=== PATIENT | male | born 1960 | race Caucasian/White ===

== ENCOUNTER 2017-11-07 16:09 | Inpatient (IN) | payer BC ==
[2017-11-07] MEDS ORDERED: MIDAZOLAM 1 MG/ML 2 ML INJ (19:36)
[2017-11-07] MEDS: THROMBIN 5000 UNIT VIAL (20:13)
[2017-11-07] MEDS: GELATIN SIZE 100 SPONGE (20:13)
[2017-11-07] MEDS ORDERED: PROPOFOL 20 ML (20:20)
[2017-11-07] MEDS ORDERED: LIDOCAINE 2% (SDV) 5 ML INJ (20:20)
[2017-11-07] MEDS ORDERED: ETOMIDATE 20 MG INJ (20:20)
[2017-11-07] MEDS ORDERED: CLINDAMYCIN 600 MG/D5W (PMX) 50 ML IVPB (20:21)
[2017-11-07] MEDS ORDERED: ONDANSETRON 4 MG INJ ×2 (20:21→20:35)
[2017-11-07] MEDS ORDERED: LABETALOL HCL 20MG INJ (20:35)
[2017-11-07] MEDS ORDERED: FENTAnyl 50 MCG/ML VIAL (20:35)
[2017-11-07] MEDS ORDERED: HYDROmorphONE (0.2 MG/ML) 10ML SYG IV ×2 (20:35→21:00)
[2017-11-07] MEDS: ONDANSETRON 4 MG INJ IV (20:42)
[2017-11-07] MEDS: HYDROmorphONE (0.2 MG/ML) 10ML SYG IV ×5 (20:42→21:27)
[2017-11-07] MEDS: LABETALOL HCL 20MG INJ IV (20:43)
[2017-11-07] MEDS ORDERED: DIPHENHYDRAMINE 50 MG INJ IV (21:00)
[2017-11-07] MEDS ORDERED: FENTAnyl 50 MCG/ML VIAL IV (21:00)
[2017-11-07] MEDS ORDERED: hydrALAzine 20 MG INJ IV (21:00)
[2017-11-07] MEDS: MEPERIDINE 25 MG INJ IV (21:11)
[2017-11-07] MEDS: HYDROCODONE/APAP (5/325) TAB PO (22:08)
[2017-11-07] MEDS ORDERED: DEXTROSE 50% 50 ML SYRINGE IV ×2 (23:45)
[2017-11-07] MEDS ORDERED: GLUCAGON 1 MG INJ IM (23:45)
[2017-11-07] MEDS ORDERED: GLUCOSE GEL 15 GRAM TUBE BUCCAL (23:45)
[2017-11-07] MEDS ORDERED: GLUCOSE GEL 15 GRAM TUBE PO ×2 (23:45)
[2017-11-07] MEDS: HYDROmorphONE 0.5 MG/0.5 ML SYG IV (23:56)
[2017-11-07] MEDS: 1/2 NS + KCL 20 MEQ 1,000 ML IV (23:56)
[2017-11-08] MEDS: hydrALAzine 20 MG INJ IV (00:30)
[2017-11-08] MEDS: HYDROCODONE/APAP (5/325) TAB PO ×6 (01:28→22:30)
[2017-11-08] MEDS: HYDROmorphONE 0.5 MG/0.5 ML SYG IV ×3 (04:18→20:38)
[2017-11-08] MEDS: INSULIN ASPART [NOVOLOG] 3 ML PEN SC ×5 (08:54→20:48)
[2017-11-08] MEDS ORDERED: HYDROCODONE/APAP (10/325) TAB PO (16:30)
[2017-11-08] MEDS ORDERED: hydrALAzine 20 MG INJ IV (17:00)
[2017-11-08] MEDS ORDERED: INSULIN ASP PROT/ASPART (70/30) PEN SC (17:25)
[2017-11-08 17:52] LABS: ADD MAN DIFF? NO
[2017-11-08 17:53] LABS: WHITE BLOOD COUNT 10.5 10^3/ul (4.8-10.8)
[2017-11-08 17:53] LABS: BASOPHILS % 0.1 % (0.0-2.0); EOSINOPHILS # 0.2 10^3/ul (0.0-0.5); HEMATOCRIT 29.9 % (42.0-52.0); HEMOGLOBIN 9.9 g/dl (14.0-18.0); LYMPHOCYTES # 1.5 10^3/ul (0.8-2.9); LYMPHOCYTES % 14.1 % (15.0-51.0); MEAN CORPUSCULAR HEMOGLOBIN 28.4 pg (29.0-33.0); MEAN CORPUSCULAR HGB CONC 33.1 g/dl (32.0-37.0); MEAN CORPUSCULAR VOLUME 85.9 fl (82.0-101.0); MEAN PLATELET VOLUME 8.6 fl (7.4-10.4); MONOCYTE # 0.7 10^3/ul (0.3-0.9); MONOCYTES % 6.9 % (0.0-11.0); NEUTROPHILS % 76.5 % (39.0-77.0); PLATELET COUNT 317 10^3/UL (140-415); RED BLOOD COUNT 3.48 10^6/ul (4.70-6.10); RED CELL DISTRIBUTION WIDTH 11.7 % (11.5-14.5)
[2017-11-08] MEDS ORDERED: INSULIN ASPART [NOVOLOG] 3 ML PEN SC (17:55)
[2017-11-08 18:11] LABS: ANION GAP 12 (8-16); BLOOD UREA NITROGEN 12 mg/dl (7-20); CALCIUM 8.5 mg/dl (8.4-10.2); CARBON DIOXIDE 29 mmol/L (21-31); CHLORIDE 96 mmol/L (97-110); CREATININE 0.67 mg/dl (0.61-1.24); GLUCOSE 218 mg/dl (70-220); POTASSIUM 4.7 mmol/L (3.5-5.1)
[2017-11-08 18:12] LABS: SODIUM 132 mmol/L (135-144)
[2017-11-08] MEDS: GABAPENTIN 400 MG CAP PO (20:33)
[2017-11-08] MEDS: ACETAMINOPHEN 325 MG TAB PO (20:34)
[2017-11-08] MEDS: INSULIN GLARGINE [LANtus] 3 ML PEN SC (20:41)
[2017-11-08] MEDS: LATANOPROST 0.005% 2.5 ML OPH BOTH EYES (20:50)
[2017-11-09] MEDS: HYDROCODONE/APAP (5/325) TAB PO ×4 (02:36→20:27)
[2017-11-09] MEDS: ACETAMINOPHEN 325 MG TAB PO (02:43)
[2017-11-09 06:19] LABS: ADD MAN DIFF? NO
[2017-11-09 06:37] LABS: WHITE BLOOD COUNT 13.2 10^3/ul (4.8-10.8)
[2017-11-09 06:37] LABS: BASOPHILS % 0.1 % (0.0-2.0); EOSINOPHILS # 0.1 10^3/ul (0.0-0.5); EOSINOPHILS % 0.8 % (0.0-7.0); HEMATOCRIT 28.9 % (42.0-52.0); HEMOGLOBIN 9.6 g/dl (14.0-18.0); LYMPHOCYTES # 1.2 10^3/ul (0.8-2.9); LYMPHOCYTES % 9.3 % (15.0-51.0); MEAN CORPUSCULAR HEMOGLOBIN 28.4 pg (29.0-33.0); MEAN CORPUSCULAR HGB CONC 33.2 g/dl (32.0-37.0); MEAN CORPUSCULAR VOLUME 85.5 fl (82.0-101.0); MEAN PLATELET VOLUME 9.4 fl (7.4-10.4); MONOCYTE # 0.8 10^3/ul (0.3-0.9); MONOCYTES % 5.9 % (0.0-11.0); NEUTROPHILS % 83.4 % (39.0-77.0); PLATELET COUNT 351 10^3/UL (140-415); RED BLOOD COUNT 3.38 10^6/ul (4.70-6.10); RED CELL DISTRIBUTION WIDTH 11.7 % (11.5-14.5)
[2017-11-09 07:17] LABS: ANION GAP 15 (8-16); BLOOD UREA NITROGEN 12 mg/dl (7-20); CALCIUM 8.6 mg/dl (8.4-10.2); CARBON DIOXIDE 28 mmol/L (21-31); CHLORIDE 97 mmol/L (97-110); GLUCOSE 225 mg/dl (70-220); POTASSIUM 4.5 mmol/L (3.5-5.1); SODIUM 135 mmol/L (135-144)
[2017-11-09 07:48] LABS: HEMOGLOBIN A1C 8.7 % (0-5.9)
[2017-11-09] MEDS: ASPIRIN (EC) 81 MG TAB PO (09:11)
[2017-11-09] MEDS: GABAPENTIN 400 MG CAP PO ×3 (09:11→20:15)
[2017-11-09] MEDS: INSULIN ASPART [NOVOLOG] 3 ML PEN SC ×7 (10:01→20:19)
[2017-11-09] MEDS: ONDANSETRON 4 MG INJ IV (10:05)
[2017-11-09] MEDS: HYDROmorphONE 0.5 MG/0.5 ML SYG IV ×3 (11:12→21:55)
[2017-11-09] MEDS: LATANOPROST 0.005% 2.5 ML OPH BOTH EYES (20:16)
[2017-11-09] MEDS: INSULIN GLARGINE [LANtus] 3 ML PEN SC (20:18)
[2017-11-10] MEDS: HYDROCODONE/APAP (5/325) TAB PO ×5 (01:04→20:33)
[2017-11-10] MEDS: INSULIN ASPART [NOVOLOG] 3 ML PEN SC ×7 (09:02→20:40)
[2017-11-10] MEDS: HYDROmorphONE 0.5 MG/0.5 ML SYG IV ×2 (09:05→23:08)
[2017-11-10] MEDS: ASPIRIN (EC) 81 MG TAB PO (09:05)
[2017-11-10] MEDS: GABAPENTIN 400 MG CAP PO ×3 (09:06→20:32)
[2017-11-10] MEDS: LINAGLIPTIN 5 MG TABLET PO (14:04)
[2017-11-10] MEDS: INSULIN GLARGINE [LANtus] 3 ML PEN SC (20:42)
[2017-11-10] MEDS: LATANOPROST 0.005% 2.5 ML OPH BOTH EYES (23:07)
[2017-11-11] MEDS: HYDROCODONE/APAP (5/325) TAB PO ×5 (01:00→23:13)
[2017-11-11] MEDS: HYDROmorphONE 0.5 MG/0.5 ML SYG IV ×2 (03:28→08:48)
[2017-11-11] MEDS: GABAPENTIN 400 MG CAP PO ×3 (08:47→22:12)
[2017-11-11] MEDS: ASPIRIN (EC) 81 MG TAB PO (08:47)
[2017-11-11] MEDS: LINAGLIPTIN 5 MG TABLET PO (08:48)
[2017-11-11] MEDS: INSULIN ASPART [NOVOLOG] 3 ML PEN SC ×7 (09:32→21:00)
[2017-11-11 15:55] LABS: ADD MAN DIFF? NO
[2017-11-11 15:57] LABS: BASOPHILS % 0.1 % (0.0-2.0); EOSINOPHILS # 0.2 10^3/ul (0.0-0.5); EOSINOPHILS % 1.2 % (0.0-7.0); HEMATOCRIT 27.6 % (42.0-52.0); HEMOGLOBIN 9.3 g/dl (14.0-18.0); LYMPHOCYTES # 1.2 10^3/ul (0.8-2.9); LYMPHOCYTES % 9.5 % (15.0-51.0); MEAN CORPUSCULAR HGB CONC 33.7 g/dl (32.0-37.0); MEAN PLATELET VOLUME 9.3 fl (7.4-10.4); MONOCYTE # 0.8 10^3/ul (0.3-0.9); MONOCYTES % 6.7 % (0.0-11.0); NEUTROPHIL # 10.1 10^3/ul (1.6-7.5); PLATELET COUNT 373 10^3/UL (140-415); RED BLOOD COUNT 3.21 10^6/ul (4.70-6.10)
[2017-11-11 15:57] LABS: WHITE BLOOD COUNT 12.3 10^3/ul (4.8-10.8)
[2017-11-11 16:38] LABS: ANION GAP 16 (8-16); BLOOD UREA NITROGEN 18 mg/dl (7-20); CALCIUM 8.5 mg/dl (8.4-10.2); CARBON DIOXIDE 28 mmol/L (21-31); CHLORIDE 98 mmol/L (97-110); CREATININE 0.75 mg/dl (0.61-1.24); GLUCOSE 203 mg/dl (70-220); POTASSIUM 4.8 mmol/L (3.5-5.1); SODIUM 137 mmol/L (135-144)
[2017-11-11] MEDS: LATANOPROST 0.005% 2.5 ML OPH BOTH EYES (22:12)
[2017-11-11] MEDS: INSULIN GLARGINE [LANtus] 3 ML PEN SC (22:19)
[2017-11-12] MEDS: HYDROCODONE/APAP (5/325) TAB PO ×4 (03:25→20:14)
[2017-11-12] MEDS: HYDROmorphONE 0.5 MG/0.5 ML SYG IV (05:19)
[2017-11-12 06:32] LABS: ADD MAN DIFF? NO
[2017-11-12 06:44] LABS: BASOPHILS % 0.2 % (0.0-2.0); EOSINOPHILS # 0.2 10^3/ul (0.0-0.5); EOSINOPHILS % 2.3 % (0.0-7.0); HEMATOCRIT 27.5 % (42.0-52.0); HEMOGLOBIN 9.2 g/dl (14.0-18.0); LYMPHOCYTES # 1.8 10^3/ul (0.8-2.9); LYMPHOCYTES % 19.9 % (15.0-51.0); MEAN CORPUSCULAR HEMOGLOBIN 28.8 pg (29.0-33.0); MEAN CORPUSCULAR HGB CONC 33.5 g/dl (32.0-37.0); MEAN CORPUSCULAR VOLUME 85.9 fl (82.0-101.0); MEAN PLATELET VOLUME 9.5 fl (7.4-10.4); MONOCYTE # 0.7 10^3/ul (0.3-0.9); MONOCYTES % 7.6 % (0.0-11.0); NEUTROPHIL # 6.4 10^3/ul (1.6-7.5); NEUTROPHILS % 69.7 % (39.0-77.0); PLATELET COUNT 406 10^3/UL (140-415); RED CELL DISTRIBUTION WIDTH 11.9 % (11.5-14.5)
[2017-11-12 06:44] LABS: WHITE BLOOD COUNT 9.2 10^3/ul (4.8-10.8)
[2017-11-12 07:05] LABS: ANION GAP 15 (8-16); BLOOD UREA NITROGEN 21 mg/dl (7-20); CALCIUM 8.7 mg/dl (8.4-10.2); CARBON DIOXIDE 27 mmol/L (21-31); CHLORIDE 102 mmol/L (97-110); CREATININE 0.66 mg/dl (0.61-1.24); GLUCOSE 117 mg/dl (70-220); POTASSIUM 5.1 mmol/L (3.5-5.1); SODIUM 139 mmol/L (135-144)
[2017-11-12] MEDS: INSULIN ASPART [NOVOLOG] 3 ML PEN SC ×7 (07:50→21:00)
[2017-11-12] MEDS: GABAPENTIN 400 MG CAP PO ×3 (08:48→20:31)
[2017-11-12] MEDS: ASPIRIN (EC) 81 MG TAB PO (08:48)
[2017-11-12] MEDS: LINAGLIPTIN 5 MG TABLET PO (08:48)
[2017-11-12] MEDS: LATANOPROST 0.005% 2.5 ML OPH BOTH EYES (20:31)
[2017-11-12] MEDS: ACETAMINOPHEN 325 MG TAB PO (20:32)
[2017-11-12] MEDS: INSULIN GLARGINE [LANtus] 3 ML PEN SC (20:34)
[2017-11-13] MEDS: HYDROmorphONE 2 MG TAB PO ×2 (01:28→20:58)
[2017-11-13] MEDS: HYDROCODONE/APAP (5/325) TAB PO ×4 (04:18→23:17)
[2017-11-13 06:27] LABS: ADD MAN DIFF? NO
[2017-11-13 06:32] LABS: BASOPHILS % 0.4 % (0.0-2.0); EOSINOPHILS # 0.2 10^3/ul (0.0-0.5); HEMOGLOBIN 9.5 g/dl (14.0-18.0); LYMPHOCYTES # 1.5 10^3/ul (0.8-2.9); LYMPHOCYTES % 14.2 % (15.0-51.0); MEAN CORPUSCULAR HEMOGLOBIN 28.9 pg (29.0-33.0); MEAN CORPUSCULAR HGB CONC 33.9 g/dl (32.0-37.0); MEAN CORPUSCULAR VOLUME 85.1 fl (82.0-101.0); MEAN PLATELET VOLUME 9.3 fl (7.4-10.4); MONOCYTE # 0.8 10^3/ul (0.3-0.9); MONOCYTES % 7.5 % (0.0-11.0); NEUTROPHIL # 8.1 10^3/ul (1.6-7.5); NEUTROPHILS % 75.2 % (39.0-77.0); PLATELET COUNT 383 10^3/UL (140-415); RED BLOOD COUNT 3.29 10^6/ul (4.70-6.10); RED CELL DISTRIBUTION WIDTH 11.9 % (11.5-14.5)
[2017-11-13 06:32] LABS: WHITE BLOOD COUNT 10.8 10^3/ul (4.8-10.8)
[2017-11-13 06:58] LABS: ANION GAP 15 (8-16); BLOOD UREA NITROGEN 20 mg/dl (7-20); CALCIUM 8.8 mg/dl (8.4-10.2); CARBON DIOXIDE 29 mmol/L (21-31); CHLORIDE 101 mmol/L (97-110); CREATININE 0.76 mg/dl (0.61-1.24); GLUCOSE 127 mg/dl (70-220); POTASSIUM 4.8 mmol/L (3.5-5.1); SODIUM 140 mmol/L (135-144)
[2017-11-13] MEDS: INSULIN ASPART [NOVOLOG] 3 ML PEN SC ×7 (08:26→21:00)
[2017-11-13] MEDS: LINAGLIPTIN 5 MG TABLET PO (08:30)
[2017-11-13] MEDS: ASPIRIN (EC) 81 MG TAB PO (08:30)
[2017-11-13] MEDS: GABAPENTIN 400 MG CAP PO ×3 (08:30→20:57)
[2017-11-13] MEDS: LATANOPROST 0.005% 2.5 ML OPH BOTH EYES (20:57)
[2017-11-13] MEDS: INSULIN GLARGINE [LANtus] 3 ML PEN SC (21:00)
[2017-11-14] MEDS: HYDROCODONE/APAP (5/325) TAB PO ×4 (02:02→20:16)
[2017-11-14 05:45] LABS: ADD MAN DIFF? NO
[2017-11-14 06:04] LABS: BASOPHILS % 0.4 % (0.0-2.0); EOSINOPHILS # 0.2 10^3/ul (0.0-0.5); EOSINOPHILS % 1.9 % (0.0-7.0); HEMATOCRIT 31.8 % (42.0-52.0); HEMOGLOBIN 10.7 g/dl (14.0-18.0); LYMPHOCYTES # 2.3 10^3/ul (0.8-2.9); LYMPHOCYTES % 21.2 % (15.0-51.0); MEAN CORPUSCULAR HEMOGLOBIN 28.7 pg (29.0-33.0); MEAN CORPUSCULAR HGB CONC 33.6 g/dl (32.0-37.0); MEAN CORPUSCULAR VOLUME 85.3 fl (82.0-101.0); MEAN PLATELET VOLUME 9.2 fl (7.4-10.4); MONOCYTE # 0.9 10^3/ul (0.3-0.9); MONOCYTES % 8.3 % (0.0-11.0); NEUTROPHIL # 7.2 10^3/ul (1.6-7.5); NEUTROPHILS % 67.6 % (39.0-77.0); PLATELET COUNT 489 10^3/UL (140-415); RED BLOOD COUNT 3.73 10^6/ul (4.70-6.10); RED CELL DISTRIBUTION WIDTH 12.2 % (11.5-14.5)
[2017-11-14 06:04] LABS: WHITE BLOOD COUNT 10.7 10^3/ul (4.8-10.8)
[2017-11-14 06:22] LABS: BLOOD UREA NITROGEN 25 mg/dl (7-20); CALCIUM 9.2 mg/dl (8.4-10.2); CARBON DIOXIDE 29 mmol/L (21-31); CHLORIDE 99 mmol/L (97-110); CREATININE 0.72 mg/dl (0.61-1.24); GLUCOSE 229 mg/dl (70-220); SODIUM 142 mmol/L (135-144)
[2017-11-14 06:25] LABS: ANION GAP 19 (8-16); POTASSIUM 4.7 mmol/L (3.5-5.1)
[2017-11-14] MEDS: LINAGLIPTIN 5 MG TABLET PO (08:48)
[2017-11-14] MEDS: GABAPENTIN 400 MG CAP PO ×3 (08:48→20:17)
[2017-11-14] MEDS: ASPIRIN (EC) 81 MG TAB PO (08:48)
[2017-11-14] MEDS: INSULIN ASPART [NOVOLOG] 3 ML PEN SC ×7 (08:49→20:26)
[2017-11-14] MEDS: INFLUENZA VIRUS VACCINE 0.5 ML (DISPENSING) IM* (08:52)
[2017-11-14] MEDS: ACETAMINOPHEN 325 MG TAB PO (11:48)
[2017-11-14] MEDS ORDERED: VITAMIN A & D 5 GM OINT PACKET TOP (12:54)
[2017-11-14] MEDS: LATANOPROST 0.005% 2.5 ML OPH BOTH EYES (20:17)
[2017-11-14] MEDS: INSULIN GLARGINE [LANtus] 3 ML PEN SC (20:22)
[2017-11-14] MEDS: HYDROmorphONE 2 MG TAB PO (22:56)
[2017-11-15] MEDS: HYDROCODONE/APAP (5/325) TAB PO ×2 (01:04→20:09)
[2017-11-15] MEDS: CYCLOBENZAPRINE 10 MG TAB PO ×2 (02:55→23:40)
[2017-11-15] MEDS: ONDANSETRON 4 MG INJ IV (08:54)
[2017-11-15] MEDS: HYDROmorphONE 0.5 MG/0.5 ML SYG IV ×3 (08:56→22:22)
[2017-11-15] MEDS: INSULIN ASPART [NOVOLOG] 3 ML PEN SC ×7 (08:58→20:21)
[2017-11-15] MEDS: GABAPENTIN 400 MG CAP PO ×3 (09:00→20:09)
[2017-11-15] MEDS: ASPIRIN (EC) 81 MG TAB PO (09:00)
[2017-11-15] MEDS: LINAGLIPTIN 5 MG TABLET PO (09:00)
[2017-11-15] MEDS: HYDROmorphONE 1 MG/ML SYG IV (18:04)
[2017-11-15] MEDS: INSULIN GLARGINE [LANtus] 3 ML PEN SC (20:20)
[2017-11-15] MEDS: LATANOPROST 0.005% 2.5 ML OPH BOTH EYES (20:24)
[2017-11-16] MEDS: HYDROmorphONE 0.5 MG/0.5 ML SYG IV ×4 (02:27→20:49)
[2017-11-16 05:23] LABS: ADD MAN DIFF? NO
[2017-11-16 05:32] LABS: BASOPHILS % 0.5 % (0.0-2.0); EOSINOPHILS # 0.3 10^3/ul (0.0-0.5); HEMATOCRIT 30.3 % (42.0-52.0); LYMPHOCYTES % 23.4 % (15.0-51.0); MEAN CORPUSCULAR HEMOGLOBIN 28.3 pg (29.0-33.0); MEAN CORPUSCULAR VOLUME 85.8 fl (82.0-101.0); MEAN PLATELET VOLUME 8.8 fl (7.4-10.4); MONOCYTE # 0.8 10^3/ul (0.3-0.9); MONOCYTES % 9.2 % (0.0-11.0); NEUTROPHIL # 5.2 10^3/ul (1.6-7.5); NEUTROPHILS % 62.8 % (39.0-77.0); PLATELET COUNT 413 10^3/UL (140-415); RED BLOOD COUNT 3.53 10^6/ul (4.70-6.10); RED CELL DISTRIBUTION WIDTH 11.9 % (11.5-14.5)
[2017-11-16 05:32] LABS: WHITE BLOOD COUNT 8.3 10^3/ul (4.8-10.8)
[2017-11-16 06:18] LABS: ANION GAP 16 (8-16); BLOOD UREA NITROGEN 24 mg/dl (7-20); CALCIUM 9.4 mg/dl (8.4-10.2); CARBON DIOXIDE 31 mmol/L (21-31); CHLORIDE 101 mmol/L (97-110); CREATININE 0.69 mg/dl (0.61-1.24); GLUCOSE 134 mg/dl (70-220); POTASSIUM 5.1 mmol/L (3.5-5.1); SODIUM 143 mmol/L (135-144)
[2017-11-16] MEDS: INSULIN ASPART [NOVOLOG] 3 ML PEN SC ×7 (07:50→21:00)
[2017-11-16] MEDS: GABAPENTIN 400 MG CAP PO ×3 (09:07→20:42)
[2017-11-16] MEDS: ASPIRIN (EC) 81 MG TAB PO (09:07)
[2017-11-16] MEDS: LINAGLIPTIN 5 MG TABLET PO (09:07)
[2017-11-16] MEDS: HYDROCODONE/APAP (5/325) TAB PO (17:24)
[2017-11-16] MEDS: LATANOPROST 0.005% 2.5 ML OPH BOTH EYES (20:41)
[2017-11-16] MEDS: INSULIN GLARGINE [LANtus] 3 ML PEN SC (20:47)
[2017-11-17] MEDS: CYCLOBENZAPRINE 10 MG TAB PO ×2 (00:23→09:50)
[2017-11-17] MEDS: HYDROCODONE/APAP (5/325) TAB PO ×3 (00:23→09:50)
[2017-11-17] MEDS: INSULIN ASPART [NOVOLOG] 3 ML PEN SC ×7 (07:50→20:52)
[2017-11-17] MEDS: GABAPENTIN 400 MG CAP PO ×3 (08:33→20:40)
[2017-11-17] MEDS: ASPIRIN (EC) 81 MG TAB PO (08:33)
[2017-11-17] MEDS: LINAGLIPTIN 5 MG TABLET PO (08:34)
[2017-11-17] MEDS: HYDROmorphONE 0.5 MG/0.5 ML SYG IV ×2 (19:14→22:29)
[2017-11-17] MEDS: LATANOPROST 0.005% 2.5 ML OPH BOTH EYES (20:42)
[2017-11-17] MEDS: INSULIN GLARGINE [LANtus] 3 ML PEN SC (20:44)
[2017-11-18] MEDS: HYDROCODONE/APAP (5/325) TAB PO ×3 (01:36→23:49)
[2017-11-18] MEDS: CYCLOBENZAPRINE 10 MG TAB PO ×3 (03:07→23:49)
[2017-11-18 05:04] LABS: ADD MAN DIFF? NO
[2017-11-18] MEDS: HYDROmorphONE 0.5 MG/0.5 ML SYG IV ×3 (05:06→20:54)
[2017-11-18 05:13] LABS: BASOPHILS % 0.5 % (0.0-2.0); EOSINOPHILS # 0.2 10^3/ul (0.0-0.5); EOSINOPHILS % 2.8 % (0.0-7.0); HEMATOCRIT 28.5 % (42.0-52.0); HEMOGLOBIN 9.6 g/dl (14.0-18.0); LYMPHOCYTES # 1.9 10^3/ul (0.8-2.9); LYMPHOCYTES % 22.9 % (15.0-51.0); MEAN CORPUSCULAR HEMOGLOBIN 28.3 pg (29.0-33.0); MEAN CORPUSCULAR HGB CONC 33.7 g/dl (32.0-37.0); MEAN CORPUSCULAR VOLUME 84.1 fl (82.0-101.0); MEAN PLATELET VOLUME 8.9 fl (7.4-10.4); MONOCYTE # 0.9 10^3/ul (0.3-0.9); NEUTROPHIL # 5.1 10^3/ul (1.6-7.5); NEUTROPHILS % 61.5 % (39.0-77.0); PLATELET COUNT 360 10^3/UL (140-415); RED BLOOD COUNT 3.39 10^6/ul (4.70-6.10); RED CELL DISTRIBUTION WIDTH 12.3 % (11.5-14.5)
[2017-11-18 05:13] LABS: WHITE BLOOD COUNT 8.3 10^3/ul (4.8-10.8)
[2017-11-18 05:58] LABS: ANION GAP 14 (8-16); BLOOD UREA NITROGEN 26 mg/dl (7-20); CALCIUM 9.1 mg/dl (8.4-10.2); CARBON DIOXIDE 30 mmol/L (21-31); CHLORIDE 102 mmol/L (97-110); CREATININE 0.67 mg/dl (0.61-1.24); GLUCOSE 153 mg/dl (70-220); POTASSIUM 4.4 mmol/L (3.5-5.1); SODIUM 142 mmol/L (135-144)
[2017-11-18] MEDS: GABAPENTIN 400 MG CAP PO ×3 (08:16→20:56)
[2017-11-18] MEDS: ASPIRIN (EC) 81 MG TAB PO (08:16)
[2017-11-18] MEDS: LINAGLIPTIN 5 MG TABLET PO (08:17)
[2017-11-18] MEDS: INSULIN ASPART [NOVOLOG] 3 ML PEN SC ×7 (08:59→21:00)
[2017-11-18] MEDS: LATANOPROST 0.005% 2.5 ML OPH BOTH EYES (20:51)
[2017-11-18] MEDS: INSULIN GLARGINE [LANtus] 3 ML PEN SC (21:15)
[2017-11-19] MEDS: HYDROmorphONE 0.5 MG/0.5 ML SYG IV ×3 (02:47→21:02)
[2017-11-19] MEDS: LINAGLIPTIN 5 MG TABLET PO (08:35)
[2017-11-19] MEDS: GABAPENTIN 400 MG CAP PO ×3 (08:35→20:44)
[2017-11-19] MEDS: ASPIRIN (EC) 81 MG TAB PO (08:35)
[2017-11-19] MEDS: INSULIN ASPART [NOVOLOG] 3 ML PEN SC ×7 (09:02→20:50)
[2017-11-19] MEDS: HYDROCODONE/APAP (5/325) TAB PO ×2 (09:51→19:15)
[2017-11-19] MEDS: CYCLOBENZAPRINE 10 MG TAB PO (12:57)
[2017-11-19] MEDS: INSULIN GLARGINE [LANtus] 3 ML PEN SC (20:44)
[2017-11-19] MEDS: LATANOPROST 0.005% 2.5 ML OPH BOTH EYES (20:44)
[2017-11-20] MEDS: CYCLOBENZAPRINE 10 MG TAB PO ×2 (01:07→11:25)
[2017-11-20] MEDS: HYDROCODONE/APAP (5/325) TAB PO ×2 (01:07→23:39)
[2017-11-20] MEDS: HYDROmorphONE 0.5 MG/0.5 ML SYG IV ×3 (04:01→17:18)
[2017-11-20 05:30] LABS: ADD MAN DIFF? NO
[2017-11-20 05:36] LABS: BASOPHILS % 0.4 % (0.0-2.0); EOSINOPHILS # 0.3 10^3/ul (0.0-0.5); EOSINOPHILS % 2.7 % (0.0-7.0); HEMATOCRIT 29.8 % (42.0-52.0); HEMOGLOBIN 9.8 g/dl (14.0-18.0); LYMPHOCYTES # 2.2 10^3/ul (0.8-2.9); LYMPHOCYTES % 23.8 % (15.0-51.0); MEAN CORPUSCULAR HEMOGLOBIN 28.1 pg (29.0-33.0); MEAN CORPUSCULAR HGB CONC 32.9 g/dl (32.0-37.0); MEAN CORPUSCULAR VOLUME 85.4 fl (82.0-101.0); MONOCYTE # 0.8 10^3/ul (0.3-0.9); MONOCYTES % 8.5 % (0.0-11.0); PLATELET COUNT 385 10^3/UL (140-415); RED BLOOD COUNT 3.49 10^6/ul (4.70-6.10); RED CELL DISTRIBUTION WIDTH 12.4 % (11.5-14.5)
[2017-11-20 05:36] LABS: WHITE BLOOD COUNT 9.4 10^3/ul (4.8-10.8)
[2017-11-20 05:53] LABS: ANION GAP 12 (8-16); BLOOD UREA NITROGEN 34 mg/dl (7-20); CALCIUM 9.3 mg/dl (8.4-10.2); CARBON DIOXIDE 31 mmol/L (21-31); CHLORIDE 100 mmol/L (97-110); CREATININE 0.73 mg/dl (0.61-1.24); GLUCOSE 71 mg/dl (70-220); POTASSIUM 4.1 mmol/L (3.5-5.1); SODIUM 139 mmol/L (135-144)
[2017-11-20 05:54] LABS: INR 1.25; PROTIME 15.9 Sec (11.9-14.9); PT RATIO 1.2
[2017-11-20 05:55] LABS: PARTIAL THROMBOPLASTIN TIME 42.1 Sec (25.0-35.0)
[2017-11-20 07:21] LABS: THROMBIN TIME 14.6 SEC (13.8-19.1)
[2017-11-20 07:28] LABS: PLATELET COUNT 385 10^3/UL (140-440)
[2017-11-20] MEDS: INSULIN ASPART [NOVOLOG] 3 ML PEN SC ×7 (08:45→21:00)
[2017-11-20] MEDS: GABAPENTIN 400 MG CAP PO ×3 (09:18→22:40)
[2017-11-20] MEDS: LINAGLIPTIN 5 MG TABLET PO (09:18)
[2017-11-20] MEDS: ASPIRIN (EC) 81 MG TAB PO (09:18)
[2017-11-20] MEDS ORDERED: MIDAZOLAM 1 MG/ML 2 ML INJ (19:18)
[2017-11-20] MEDS ORDERED: ONDANSETRON 4 MG INJ (19:18)
[2017-11-20] MEDS ORDERED: PROPOFOL 20 ML (19:18)
[2017-11-20] MEDS ORDERED: FENTAnyl 50 MCG/ML VIAL (19:18)
[2017-11-20] MEDS ORDERED: METOCLOPRAMIDE 10 MG INJ (19:18)
[2017-11-20] MEDS ORDERED: SODIUM CL BACTERIOSTATIC 30 ML INJ (19:21)
[2017-11-20] MEDS ORDERED: PHENYLephrine (100 MCG/ML) 5ML SYG (19:47)
[2017-11-20] MEDS: POLYMYXIN B 500000 UNIT INJ (19:56)
[2017-11-20] MEDS: BACITRACIN 50000 UNITS INJ (19:56)
[2017-11-20] MEDS: MINERAL OIL LIGHT 10 ML VIAL (19:56)
[2017-11-20] MEDS: THROMBIN 5000 UNIT VIAL (20:00)
[2017-11-20] MEDS ORDERED: ONDANSETRON 4 MG INJ IV (20:00)
[2017-11-20] MEDS: VANCOMYCIN 1 GM INJ (20:00)
[2017-11-20] MEDS: LIDOCAINE 1%/EPI 30 ML INJ (20:05)
[2017-11-20] MEDS: BACITRACIN/POLYMYXIN 28.35 GM OINT TOP (20:21)
[2017-11-20] MEDS: HYDROmorphONE (0.2 MG/ML) 10ML SYG IV ×4 (20:55→22:06)
[2017-11-20] MEDS ORDERED: NACL 0.9% 3 ML SYG IV (21:00)
[2017-11-20] MEDS: LATANOPROST 0.005% 2.5 ML OPH BOTH EYES (22:40)
[2017-11-20] MEDS: INSULIN GLARGINE [LANtus] 3 ML PEN SC (22:41)
[2017-11-21] MEDS: ZOLPIDEM 5 MG TAB PO (00:41)
[2017-11-21] MEDS: INSULIN ASPART [NOVOLOG] 3 ML PEN SC ×7 (08:45→21:00)
[2017-11-21] MEDS: CYCLOBENZAPRINE 10 MG TAB PO ×2 (08:59→20:28)
[2017-11-21] MEDS: ASPIRIN (EC) 81 MG TAB PO (08:59)
[2017-11-21] MEDS: GABAPENTIN 400 MG CAP PO ×3 (08:59→20:28)
[2017-11-21] MEDS: HYDROCODONE/APAP (5/325) TAB PO ×3 (08:59→19:18)
[2017-11-21] MEDS: LINAGLIPTIN 5 MG TABLET PO (08:59)
[2017-11-21] MEDS: SOD CHLORIDE 0.45% 1,000 ML IV (13:18)
[2017-11-21] MEDS: LATANOPROST 0.005% 2.5 ML OPH BOTH EYES (20:29)
[2017-11-21] MEDS: INSULIN GLARGINE [LANtus] 3 ML PEN SC (20:33)
[2017-11-21] MEDS: HYDROmorphONE 0.5 MG/0.5 ML SYG IV (22:10)
[2017-11-22] MEDS: HYDROCODONE/APAP (5/325) TAB PO ×5 (00:24→17:25)
[2017-11-22] MEDS: ZOLPIDEM 5 MG TAB PO (01:02)
[2017-11-22 05:13] LABS: ADD MAN DIFF? NO
[2017-11-22 05:18] LABS: BASOPHILS % 0.2 % (0.0-2.0); EOSINOPHILS # 0.4 10^3/ul (0.0-0.5); EOSINOPHILS % 4.4 % (0.0-7.0); HEMATOCRIT 28.1 % (42.0-52.0); HEMOGLOBIN 9.2 g/dl (14.0-18.0); LYMPHOCYTES # 1.8 10^3/ul (0.8-2.9); LYMPHOCYTES % 21.9 % (15.0-51.0); MEAN CORPUSCULAR HEMOGLOBIN 27.8 pg (29.0-33.0); MEAN CORPUSCULAR HGB CONC 32.7 g/dl (32.0-37.0); MEAN CORPUSCULAR VOLUME 84.9 fl (82.0-101.0); MEAN PLATELET VOLUME 8.8 fl (7.4-10.4); MONOCYTE # 0.8 10^3/ul (0.3-0.9); MONOCYTES % 9.3 % (0.0-11.0); NEUTROPHIL # 5.2 10^3/ul (1.6-7.5); NEUTROPHILS % 63.5 % (39.0-77.0); PLATELET COUNT 317 10^3/UL (140-415); RED BLOOD COUNT 3.31 10^6/ul (4.70-6.10); RED CELL DISTRIBUTION WIDTH 12.4 % (11.5-14.5)
[2017-11-22 05:18] LABS: WHITE BLOOD COUNT 8.3 10^3/ul (4.8-10.8)
[2017-11-22 06:03] LABS: ANION GAP 12 (8-16); BLOOD UREA NITROGEN 24 mg/dl (7-20); CALCIUM 8.7 mg/dl (8.4-10.2); CARBON DIOXIDE 28 mmol/L (21-31); CHLORIDE 103 mmol/L (97-110); CREATININE 0.69 mg/dl (0.61-1.24); GLUCOSE 98 mg/dl (70-220); SODIUM 139 mmol/L (135-144)
[2017-11-22] MEDS: INSULIN ASPART [NOVOLOG] 3 ML PEN SC ×7 (07:50→20:25)
[2017-11-22] MEDS: ASPIRIN (EC) 81 MG TAB PO (09:30)
[2017-11-22] MEDS: LINAGLIPTIN 5 MG TABLET PO (09:30)
[2017-11-22] MEDS: GABAPENTIN 400 MG CAP PO ×3 (09:30→20:21)
[2017-11-22] MEDS: DOCUSATE SODIUM 100 MG CAP PO (17:22)
[2017-11-22] MEDS: CYCLOBENZAPRINE 10 MG TAB PO (20:21)
[2017-11-22] MEDS: LATANOPROST 0.005% 2.5 ML OPH BOTH EYES (20:21)
[2017-11-22] MEDS: INSULIN GLARGINE [LANtus] 3 ML PEN SC (20:25)
[2017-11-23] MEDS: HYDROCODONE/APAP (5/325) TAB PO ×3 (00:52→14:48)
[2017-11-23] MEDS: ZOLPIDEM 5 MG TAB PO (02:07)
[2017-11-23 05:52] LABS: ADD MAN DIFF? NO
[2017-11-23 05:57] LABS: BASOPHILS % 0.4 % (0.0-2.0); EOSINOPHILS # 0.4 10^3/ul (0.0-0.5); EOSINOPHILS % 4.6 % (0.0-7.0); HEMATOCRIT 27.5 % (42.0-52.0); HEMOGLOBIN 9.2 g/dl (14.0-18.0); LYMPHOCYTES # 1.9 10^3/ul (0.8-2.9); LYMPHOCYTES % 23.4 % (15.0-51.0); MEAN CORPUSCULAR HGB CONC 33.5 g/dl (32.0-37.0); MEAN CORPUSCULAR VOLUME 83.6 fl (82.0-101.0); MEAN PLATELET VOLUME 9.1 fl (7.4-10.4); MONOCYTE # 0.7 10^3/ul (0.3-0.9); MONOCYTES % 8.1 % (0.0-11.0); NEUTROPHIL # 5.2 10^3/ul (1.6-7.5); NEUTROPHILS % 62.7 % (39.0-77.0); PLATELET COUNT 327 10^3/UL (140-415); RED BLOOD COUNT 3.29 10^6/ul (4.70-6.10); RED CELL DISTRIBUTION WIDTH 12.8 % (11.5-14.5)
[2017-11-23 05:57] LABS: WHITE BLOOD COUNT 8.3 10^3/ul (4.8-10.8)
[2017-11-23 06:25] LABS: ANION GAP 10 (8-16); BLOOD UREA NITROGEN 24 mg/dl (7-20); CALCIUM 9.3 mg/dl (8.4-10.2); CARBON DIOXIDE 32 mmol/L (21-31); CHLORIDE 103 mmol/L (97-110); CREATININE 0.67 mg/dl (0.61-1.24); GLUCOSE 101 mg/dl (70-220); POTASSIUM 4.4 mmol/L (3.5-5.1); SODIUM 141 mmol/L (135-144)
[2017-11-23] MEDS: INSULIN ASPART [NOVOLOG] 3 ML PEN SC ×7 (07:50→20:34)
[2017-11-23] MEDS: DOCUSATE SODIUM 100 MG CAP PO (07:51)
[2017-11-23] MEDS: BISACODYL (EC) 5 MG TAB PO (07:51)
[2017-11-23] MEDS: ASPIRIN (EC) 81 MG TAB PO (09:09)
[2017-11-23] MEDS: GABAPENTIN 400 MG CAP PO ×3 (09:10→20:34)
[2017-11-23] MEDS: LINAGLIPTIN 5 MG TABLET PO (09:10)
[2017-11-23] MEDS: MAGNESIUM HYDROXIDE 30ML CUP PO (14:46)
[2017-11-23] MEDS: LATANOPROST 0.005% 2.5 ML OPH BOTH EYES (20:34)
[2017-11-23] MEDS: CYCLOBENZAPRINE 10 MG TAB PO (20:38)
[2017-11-23] MEDS: INSULIN GLARGINE [LANtus] 3 ML PEN SC (20:39)
[2017-11-24] MEDS: HYDROCODONE/APAP (5/325) TAB PO ×3 (00:12→20:17)
[2017-11-24] MEDS: ZOLPIDEM 5 MG TAB PO (01:21)
[2017-11-24] MEDS: INSULIN ASPART [NOVOLOG] 3 ML PEN SC ×7 (07:50→20:24)
[2017-11-24] MEDS: ASPIRIN (EC) 81 MG TAB PO (08:21)
[2017-11-24] MEDS: GABAPENTIN 400 MG CAP PO ×3 (08:21→21:08)
[2017-11-24] MEDS: DOCUSATE SODIUM 100 MG CAP PO (08:21)
[2017-11-24] MEDS: LINAGLIPTIN 5 MG TABLET PO (08:21)
[2017-11-24] MEDS: HYDROmorphONE 0.5 MG/0.5 ML SYG IV ×2 (12:17→23:12)
[2017-11-24] MEDS: CYCLOBENZAPRINE 10 MG TAB PO (16:15)
[2017-11-24] MEDS: LATANOPROST 0.005% 2.5 ML OPH BOTH EYES (20:20)
[2017-11-24] MEDS: INSULIN GLARGINE [LANtus] 3 ML PEN SC (20:23)
[2017-11-25] MEDS: ZOLPIDEM 5 MG TAB PO ×2 (00:19→22:06)
[2017-11-25 06:10] LABS: ADD MAN DIFF? NO
[2017-11-25 06:13] LABS: BASOPHILS % 0.3 % (0.0-2.0); EOSINOPHILS # 0.4 10^3/ul (0.0-0.5); EOSINOPHILS % 4.8 % (0.0-7.0); HEMATOCRIT 29.1 % (42.0-52.0); HEMOGLOBIN 9.6 g/dl (14.0-18.0); LYMPHOCYTES # 1.9 10^3/ul (0.8-2.9); LYMPHOCYTES % 25.1 % (15.0-51.0); MEAN CORPUSCULAR HEMOGLOBIN 27.7 pg (29.0-33.0); MEAN CORPUSCULAR VOLUME 83.9 fl (82.0-101.0); MEAN PLATELET VOLUME 9.1 fl (7.4-10.4); MONOCYTE # 0.6 10^3/ul (0.3-0.9); MONOCYTES % 8.2 % (0.0-11.0); NEUTROPHIL # 4.6 10^3/ul (1.6-7.5); NEUTROPHILS % 61.1 % (39.0-77.0); PLATELET COUNT 329 10^3/UL (140-415); RED BLOOD COUNT 3.47 10^6/ul (4.70-6.10); RED CELL DISTRIBUTION WIDTH 12.5 % (11.5-14.5)
[2017-11-25 06:13] LABS: WHITE BLOOD COUNT 7.5 10^3/ul (4.8-10.8)
[2017-11-25 06:53] LABS: ANION GAP 13 (8-16); BLOOD UREA NITROGEN 21 mg/dl (7-20); CALCIUM 8.8 mg/dl (8.4-10.2); CARBON DIOXIDE 29 mmol/L (21-31); CHLORIDE 102 mmol/L (97-110); CREATININE 0.64 mg/dl (0.61-1.24); GLUCOSE 122 mg/dl (70-220); POTASSIUM 4.5 mmol/L (3.5-5.1); SODIUM 139 mmol/L (135-144)
[2017-11-25] MEDS: INSULIN ASPART [NOVOLOG] 3 ML PEN SC ×7 (07:50→20:36)
[2017-11-25] MEDS: GABAPENTIN 400 MG CAP PO ×3 (08:18→20:36)
[2017-11-25] MEDS: LINAGLIPTIN 5 MG TABLET PO (08:18)
[2017-11-25] MEDS: ASPIRIN (EC) 81 MG TAB PO (08:18)
[2017-11-25] MEDS: DOCUSATE SODIUM 100 MG CAP PO (08:18)
[2017-11-25] MEDS: HYDROCODONE/APAP (5/325) TAB PO ×2 (08:22→18:39)
[2017-11-25] MEDS: CYCLOBENZAPRINE 10 MG TAB PO ×2 (10:56→22:06)
[2017-11-25] MEDS: LATANOPROST 0.005% 2.5 ML OPH BOTH EYES (20:36)
[2017-11-25] MEDS: INSULIN GLARGINE [LANtus] 3 ML PEN SC (20:41)
[2017-11-26] MEDS: HYDROCODONE/APAP (5/325) TAB PO ×3 (03:54→20:12)
[2017-11-26] MEDS: GABAPENTIN 400 MG CAP PO ×3 (09:01→20:12)
[2017-11-26] MEDS: DOCUSATE SODIUM 100 MG CAP PO (09:01)
[2017-11-26] MEDS: ASPIRIN (EC) 81 MG TAB PO (09:01)
[2017-11-26] MEDS: LINAGLIPTIN 5 MG TABLET PO (09:01)
[2017-11-26] MEDS: INSULIN ASPART [NOVOLOG] 3 ML PEN SC ×7 (09:04→20:15)
[2017-11-26] MEDS: BISACODYL (EC) 5 MG TAB PO (10:23)
[2017-11-26] MEDS: CYCLOBENZAPRINE 10 MG TAB PO (12:22)
[2017-11-26] MEDS: HYDROmorphONE 0.5 MG/0.5 ML SYG IV ×2 (14:15→21:44)
[2017-11-26] MEDS: LATANOPROST 0.005% 2.5 ML OPH BOTH EYES (20:12)
[2017-11-26] MEDS: INSULIN GLARGINE [LANtus] 3 ML PEN SC (20:14)
[2017-11-26] MEDS: ZOLPIDEM 5 MG TAB PO (21:44)
[2017-11-27 05:47] LABS: ANION GAP 11 (8-16); BLOOD UREA NITROGEN 22 mg/dl (7-20); CALCIUM 9.2 mg/dl (8.4-10.2); CARBON DIOXIDE 29 mmol/L (21-31); CHLORIDE 103 mmol/L (97-110); CREATININE 0.64 mg/dl (0.61-1.24); GLUCOSE 112 mg/dl (70-220); MAGNESIUM 1.9 mg/dl (1.7-2.5); SODIUM 139 mmol/L (135-144)
[2017-11-27] MEDS: HYDROCODONE/APAP (5/325) TAB PO ×2 (06:30→15:33)
[2017-11-27] MEDS: INSULIN ASPART [NOVOLOG] 3 ML PEN SC ×7 (07:50→20:07)
[2017-11-27] MEDS: GABAPENTIN 400 MG CAP PO ×3 (08:32→20:06)
[2017-11-27] MEDS: ASPIRIN (EC) 81 MG TAB PO (08:32)
[2017-11-27] MEDS: DOCUSATE SODIUM 100 MG CAP PO (08:32)
[2017-11-27] MEDS: LINAGLIPTIN 5 MG TABLET PO (08:33)
[2017-11-27] MEDS: CYCLOBENZAPRINE 10 MG TAB PO (18:06)
[2017-11-27] MEDS: LATANOPROST 0.005% 2.5 ML OPH BOTH EYES (20:06)
[2017-11-27] MEDS: INSULIN GLARGINE [LANtus] 3 ML PEN SC (20:09)
[2017-11-27] MEDS: HYDROmorphONE 2 MG TAB PO (20:19)
[2017-11-27] MEDS: ZOLPIDEM 5 MG TAB PO (23:02)
[2017-11-28] MEDS: HYDROCODONE/APAP (5/325) TAB PO ×4 (01:10→15:39)
[2017-11-28] MEDS: BISACODYL (EC) 5 MG TAB PO (05:45)
[2017-11-28] MEDS: INSULIN ASPART [NOVOLOG] 3 ML PEN SC ×4 (09:12→13:25)
[2017-11-28] MEDS: LINAGLIPTIN 5 MG TABLET PO (09:13)
[2017-11-28] MEDS: ASPIRIN (EC) 81 MG TAB PO (09:13)
[2017-11-28] MEDS: DOCUSATE SODIUM 100 MG CAP PO (09:13)
[2017-11-28] MEDS: GABAPENTIN 400 MG CAP PO ×2 (09:13→13:15)
[2017-11-28] MEDS: ACETAMINOPHEN 325 MG TAB PO (10:05)
[2017-11-28] MEDS: CLINDAMYCIN 300 MG CAP PO (14:50)
== END 2017-11-28 16:15 | DRG 240 ==
LOC: SDS 20:00 → REC 20:28 → SDS 16:12 → MS1 21:40
PROVIDERS: Internal Medicine
PROC: 0Y6N0Z9 Detachment at Left Foot, Partial 1st Ray, Open Approach (ICD-10-PCS; principal; 2017-11-07 19:00)
PROC: 0Y6N0ZB Detachment at Left Foot, Partial 2nd Ray, Open Approach (ICD-10-PCS; 2017-11-07 19:00)
PROC: 0Y6N0ZC Detachment at Left Foot, Partial 3rd Ray, Open Approach (ICD-10-PCS; 2017-11-07 19:00)
PROC: 0Y6N0ZD Detachment at Left Foot, Partial 4th Ray, Open Approach (ICD-10-PCS; 2017-11-07 19:00)
PROC: 0Y6N0ZF Detachment at Left Foot, Partial 5th Ray, Open Approach (ICD-10-PCS; 2017-11-07 19:00)
PROC: 0HRNX74 Replacement of Left Foot Skin with Autologous Tissue Substitute, Partial Thickness, External Approach (ICD-10-PCS; 2017-11-07 19:32)
PROC: 0HBJXZZ Excision of Left Upper Leg Skin, External Approach (ICD-10-PCS; 2017-11-07 19:32)
DX: E11.52 Type 2 diabetes mellitus with diabetic peripheral angiopathy with gangrene (principal); E11.40 Type 2 diabetes mellitus with diabetic neuropathy, unspecified; K75.9 Inflammatory liver disease, unspecified; E11.65 Type 2 diabetes mellitus with hyperglycemia; I10 Essential (primary) hypertension; Z87.891 Personal history of nicotine dependence; G47.00 Insomnia, unspecified; E78.5 Hyperlipidemia, unspecified; B19.20 Unspecified viral hepatitis C without hepatic coma; E66.9 Obesity, unspecified; Z68.30 Body mass index [BMI] 30.0-30.9, adult
CPT/HCPCS: 71045; 80048; 82962; 83036; 83735; 85025; 85049; 85610; 85670; 85730; 90686; 93005; 93971; 97110; 97116; 97162; 97530

== ENCOUNTER 2017-11-28 16:37 | Inpatient (IN) | payer BC ==
[2017-11-28] MEDS ORDERED: BISACODYL (EC) 5 MG TAB PO (17:30)
[2017-11-28] MEDS ORDERED: HYDROCODONE/APAP (5/325) TAB PO (17:30)
[2017-11-28] MEDS ORDERED: GLUCAGON 1 MG INJ IM (18:00)
[2017-11-28] MEDS ORDERED: GLUCOSE GEL 15 GRAM TUBE BUCCAL (18:00)
[2017-11-28] MEDS ORDERED: GLUCOSE GEL 15 GRAM TUBE PO ×2 (18:00)
[2017-11-28] MEDS ORDERED: DEXTROSE 50% 50 ML SYRINGE IV ×2 (18:00)
[2017-11-28] MEDS ORDERED: MAGNESIUM HYDROXIDE 30ML CUP PO ×2 (18:00→22:00)
[2017-11-28] MEDS: HYDROmorphONE 1 MG/ML SYG IV ×2 (18:10→21:03)
[2017-11-28] MEDS: INSULIN ASPART [NOVOLOG] 3 ML PEN SC ×3 (18:24→21:00)
[2017-11-28] MEDS: INSULIN GLARGINE [LANtus] 3 ML PEN SC (20:58)
[2017-11-28] MEDS: GABAPENTIN 400 MG CAP PO (21:01)
[2017-11-28] MEDS: LATANOPROST 0.005% 2.5 ML OPH BOTH EYES (21:01)
[2017-11-28] MEDS ORDERED: BISACODYL 10 MG SUPP PR (22:00)
[2017-11-28] MEDS ORDERED: ACETAMINOPHEN 325 MG TAB PO (22:00)
[2017-11-28] MEDS ORDERED: LACTULOSE 30ML CUP PO (22:00)
[2017-11-28] MEDS: ZOLPIDEM 5 MG TAB PO (23:02)
[2017-11-29] MEDS: HYDROmorphONE 1 MG/ML SYG IV ×4 (01:02→23:07)
[2017-11-29 01:50] LABS: ADD UMIC YES; UR ASCORBIC ACID 20 mg/dL (NEGATIVE); UR BILIRUBIN (Dip) NEGATIVE (NEGATIVE); UR BLOOD (Dip) NEGATIVE (NEGATIVE); UR CLARITY CLEAR (CLEAR); UR COLOR STRAW (YELLOW); UR GLUCOSE (Dip) NEGATIVE (NEGATIVE); UR KETONES (Dip) NEGATIVE (NEGATIVE); UR LEUKOCYTE ESTERASE (Dip) TRACE Leu/ul (NEGATIVE); UR NITRITE (Dip) NEGATIVE (NEGATIVE); UR RBC 1 /HPF (0-5); UR TOTAL PROTEIN (Dip) NEGATIVE (NEGATIVE); UR UROBILINOGEN (Dip) NEGATIVE (NEGATIVE); UR WBC 4 /HPF (0-5)
[2017-11-29] MEDS: INSULIN ASPART [NOVOLOG] 3 ML PEN SC ×7 (07:35→21:00)
[2017-11-29 07:57] LABS: ADD MAN DIFF? NO
[2017-11-29 08:05] LABS: BASOPHILS % 0.3 % (0.0-2.0); EOSINOPHILS # 0.3 10^3/ul (0.0-0.5); EOSINOPHILS % 3.7 % (0.0-7.0); HEMATOCRIT 29.4 % (42.0-52.0); HEMOGLOBIN 9.7 g/dl (14.0-18.0); LYMPHOCYTES # 1.7 10^3/ul (0.8-2.9); LYMPHOCYTES % 23.4 % (15.0-51.0); MEAN CORPUSCULAR HEMOGLOBIN 27.9 pg (29.0-33.0); MEAN CORPUSCULAR VOLUME 84.5 fl (82.0-101.0); MEAN PLATELET VOLUME 9.2 fl (7.4-10.4); MONOCYTE # 0.7 10^3/ul (0.3-0.9); MONOCYTES % 10.2 % (0.0-11.0); NEUTROPHIL # 4.5 10^3/ul (1.6-7.5); PLATELET COUNT 282 10^3/UL (140-415); RED BLOOD COUNT 3.48 10^6/ul (4.70-6.10); RED CELL DISTRIBUTION WIDTH 12.8 % (11.5-14.5)
[2017-11-29 08:05] LABS: WHITE BLOOD COUNT 7.2 10^3/ul (4.8-10.8)
[2017-11-29 08:24] LABS: ALANINE AMINOTRANSFERASE 27 IU/L (13-69); ALBUMIN 3.3 g/dl (3.3-4.9); ALBUMIN/GLOBULIN RATIO 0.86; ALKALINE PHOSPHATASE 81 IU/L (42-121); ANION GAP 12 (8-16); ASPARTATE AMINO TRANSFERASE 20 IU/L (15-46); BLOOD UREA NITROGEN 16 mg/dl (7-20); CALCIUM 9.2 mg/dl (8.4-10.2); CARBON DIOXIDE 30 mmol/L (21-31); CHLORIDE 102 mmol/L (97-110); CREATININE 0.67 mg/dl (0.61-1.24); GLUCOSE 110 mg/dl (70-220); POTASSIUM 4.9 mmol/L (3.5-5.1); SODIUM 139 mmol/L (135-144); TOTAL PROTEIN 7.1 g/dl (6.1-8.1)
[2017-11-29] MEDS ORDERED: DOCUSATE SODIUM 100 MG CAP PO (09:00)
[2017-11-29] MEDS: GABAPENTIN 400 MG CAP PO ×3 (09:08→21:12)
[2017-11-29] MEDS: LINAGLIPTIN 5 MG TABLET PO (09:08)
[2017-11-29] MEDS: ASPIRIN (EC) 81 MG TAB PO (09:08)
[2017-11-29] MEDS: DOCUSATE SODIUM 100 MG CAP PO ×2 (09:08→21:13)
[2017-11-29] MEDS: CYCLOBENZAPRINE 10 MG TAB PO (13:53)
[2017-11-29] MEDS: HYDROmorphONE 2 MG TAB PO (17:53)
[2017-11-29] MEDS: INSULIN GLARGINE [LANtus] 3 ML PEN SC ×2 (20:00→22:36)
[2017-11-29] MEDS ORDERED: SENNA TAB PO (21:00)
[2017-11-29] MEDS: oxyCODONE (CR) 20 MG TAB [oxyCONTIN] PO (21:12)
[2017-11-29] MEDS: SENNA TAB PO (21:13)
[2017-11-29] MEDS: LATANOPROST 0.005% 2.5 ML OPH BOTH EYES (21:42)
[2017-11-29] MEDS: ZOLPIDEM 5 MG TAB PO (23:27)
[2017-11-30] MEDS ORDERED: PENDING SANTYL ORDER FOR WOUND CARE XX (01:30)
[2017-11-30] MEDS: HYDROmorphONE 1 MG/ML SYG IV ×3 (03:06→23:39)
[2017-11-30] MEDS: INSULIN ASPART [NOVOLOG] 3 ML PEN SC ×7 (07:35→20:59)
[2017-11-30] MEDS: ASPIRIN (EC) 81 MG TAB PO (09:07)
[2017-11-30] MEDS: oxyCODONE (CR) 20 MG TAB [oxyCONTIN] PO ×2 (09:07→21:07)
[2017-11-30] MEDS: LINAGLIPTIN 5 MG TABLET PO (09:07)
[2017-11-30] MEDS: DOCUSATE SODIUM 100 MG CAP PO ×2 (09:07→21:02)
[2017-11-30] MEDS: GABAPENTIN 400 MG CAP PO ×3 (09:07→21:01)
[2017-11-30] MEDS: CYCLOBENZAPRINE 10 MG TAB PO (12:25)
[2017-11-30] MEDS: EUCERIN 113 GM CR TOP (17:39)
[2017-11-30] MEDS: LATANOPROST 0.005% 2.5 ML OPH BOTH EYES (21:02)
[2017-11-30] MEDS: SENNA TAB PO (21:03)
[2017-11-30] MEDS: INSULIN GLARGINE [LANtus] 3 ML PEN SC (21:11)
[2017-11-30] MEDS: ZOLPIDEM 5 MG TAB PO (22:34)
[2017-12-01] MEDS: HYDROmorphONE 1 MG/ML SYG IV ×3 (06:22→20:27)
[2017-12-01] MEDS: INSULIN ASPART [NOVOLOG] 3 ML PEN SC ×7 (07:35→21:00)
[2017-12-01] MEDS: DOCUSATE SODIUM 100 MG CAP PO ×2 (08:53→20:24)
[2017-12-01] MEDS: oxyCODONE (CR) 20 MG TAB [oxyCONTIN] PO ×2 (08:53→20:25)
[2017-12-01] MEDS: LINAGLIPTIN 5 MG TABLET PO (08:53)
[2017-12-01] MEDS: GABAPENTIN 400 MG CAP PO ×3 (08:53→20:24)
[2017-12-01] MEDS: ASPIRIN (EC) 81 MG TAB PO (08:53)
[2017-12-01] MEDS: CLOTRIMAZOLE 1% 30 GM CR TOP (16:42)
[2017-12-01] MEDS: GENTAMICIN 0.1% 15 GM OINT TOP (16:42)
[2017-12-01] MEDS: LATANOPROST 0.005% 2.5 ML OPH BOTH EYES (20:22)
[2017-12-01] MEDS: INSULIN GLARGINE [LANtus] 3 ML PEN SC (20:23)
[2017-12-01] MEDS: SENNA TAB PO (20:24)
[2017-12-01] MEDS: ZOLPIDEM 5 MG TAB PO (23:00)
[2017-12-02] MEDS: HYDROmorphONE 1 MG/ML SYG IV ×6 (02:30→21:10)
[2017-12-02] MEDS: INSULIN ASPART [NOVOLOG] 3 ML PEN SC ×7 (08:00→21:00)
[2017-12-02] MEDS: LINAGLIPTIN 5 MG TABLET PO (09:55)
[2017-12-02] MEDS: oxyCODONE (CR) 20 MG TAB [oxyCONTIN] PO ×3 (09:55→21:58)
[2017-12-02] MEDS: GABAPENTIN 400 MG CAP PO ×3 (09:55→21:10)
[2017-12-02] MEDS: DOCUSATE SODIUM 100 MG CAP PO ×2 (09:55→21:10)
[2017-12-02] MEDS: ASPIRIN (EC) 81 MG TAB PO (09:55)
[2017-12-02] MEDS: GENTAMICIN 0.1% 15 GM OINT TOP (12:09)
[2017-12-02] MEDS: CLOTRIMAZOLE 1% 30 GM CR TOP (12:10)
[2017-12-02] MEDS ORDERED: HYDROmorphONE 1 MG/ML SYG IV (13:00)
[2017-12-02] MEDS: HYDROmorphONE 2 MG TAB PO (14:16)
[2017-12-02] MEDS: BACLOFEN 10 MG TAB PO (21:10)
[2017-12-02] MEDS: SENNA TAB PO (21:10)
[2017-12-02] MEDS: LATANOPROST 0.005% 2.5 ML OPH BOTH EYES (21:16)
[2017-12-02] MEDS: INSULIN GLARGINE [LANtus] 3 ML PEN SC (21:25)
[2017-12-02] MEDS: EUCERIN 113 GM CR TOP (21:58)
[2017-12-02] MEDS: ZOLPIDEM 5 MG TAB PO (22:58)
[2017-12-03] MEDS: HYDROmorphONE 1 MG/ML SYG IV ×4 (03:03→16:23)
[2017-12-03] MEDS: INSULIN ASPART [NOVOLOG] 3 ML PEN SC ×7 (07:35→21:28)
[2017-12-03] MEDS: BACLOFEN 10 MG TAB PO ×3 (07:38→21:15)
[2017-12-03] MEDS: GABAPENTIN 400 MG CAP PO ×3 (08:08→21:16)
[2017-12-03] MEDS: LINAGLIPTIN 5 MG TABLET PO (08:08)
[2017-12-03] MEDS: oxyCODONE (CR) 20 MG TAB [oxyCONTIN] PO ×2 (08:08→21:16)
[2017-12-03] MEDS: DOCUSATE SODIUM 100 MG CAP PO ×2 (08:09→21:15)
[2017-12-03] MEDS: GENTAMICIN 0.1% 15 GM OINT TOP (09:00)
[2017-12-03] MEDS: CLOTRIMAZOLE 1% 30 GM CR TOP (09:00)
[2017-12-03] MEDS: ASPIRIN (EC) 81 MG TAB PO (12:03)
[2017-12-03] MEDS: HYDROmorphONE 2 MG TAB PO (14:08)
[2017-12-03] MEDS: LACTULOSE 30ML CUP PO (16:19)
[2017-12-03] MEDS: ACETAMINOPHEN 325 MG TAB PO (19:43)
[2017-12-03] MEDS: SENNA TAB PO (21:16)
[2017-12-03] MEDS: INSULIN GLARGINE [LANtus] 3 ML PEN SC (21:27)
[2017-12-03] MEDS: LATANOPROST 0.005% 2.5 ML OPH BOTH EYES (21:30)
[2017-12-04] MEDS: HYDROmorphONE 1 MG/ML SYG IV ×3 (02:33→21:47)
[2017-12-04] MEDS: EUCERIN 113 GM CR TOP ×2 (07:28→21:24)
[2017-12-04] MEDS: INSULIN ASPART [NOVOLOG] 3 ML PEN SC ×7 (09:06→20:59)
[2017-12-04] MEDS: ASPIRIN (EC) 81 MG TAB PO (09:26)
[2017-12-04] MEDS: GABAPENTIN 400 MG CAP PO ×3 (09:26→21:00)
[2017-12-04] MEDS: BACLOFEN 10 MG TAB PO ×3 (09:26→21:00)
[2017-12-04] MEDS: LINAGLIPTIN 5 MG TABLET PO (09:26)
[2017-12-04] MEDS: oxyCODONE (CR) 20 MG TAB [oxyCONTIN] PO ×2 (09:26→21:01)
[2017-12-04] MEDS: DOCUSATE SODIUM 100 MG CAP PO ×2 (09:26→21:00)
[2017-12-04] MEDS: GENTAMICIN 0.1% 15 GM OINT TOP (09:28)
[2017-12-04] MEDS: CLOTRIMAZOLE 1% 30 GM CR TOP (09:30)
[2017-12-04] MEDS: CEFTAZIDIME 2GM/50 ML (PMX) 50 ML IVPB ×2 (12:00→21:05)
[2017-12-04] MEDS: INSULIN GLARGINE [LANtus] 3 ML PEN SC (20:59)
[2017-12-04] MEDS: SENNA TAB PO (21:00)
[2017-12-04] MEDS: TRIMETHOPRIM/SULFAMETHOX (DS) TAB PO (21:00)
[2017-12-04] MEDS: LATANOPROST 0.005% 2.5 ML OPH BOTH EYES (21:01)
[2017-12-04] MEDS: ZOLPIDEM 5 MG TAB PO (23:04)
[2017-12-05] MEDS: HYDROmorphONE 1 MG/ML SYG IV ×6 (01:48→19:44)
[2017-12-05] MEDS: INSULIN ASPART [NOVOLOG] 3 ML PEN SC ×7 (07:35→21:00)
[2017-12-05] MEDS: CEFTAZIDIME 2GM/50 ML (PMX) 50 ML IVPB ×2 (07:40→21:07)
[2017-12-05] MEDS: LINAGLIPTIN 5 MG TABLET PO (07:41)
[2017-12-05] MEDS: GABAPENTIN 400 MG CAP PO ×3 (09:05→21:02)
[2017-12-05] MEDS: oxyCODONE (CR) 20 MG TAB [oxyCONTIN] PO ×2 (09:05→21:02)
[2017-12-05] MEDS: DOCUSATE SODIUM 100 MG CAP PO ×2 (09:05→21:02)
[2017-12-05] MEDS: ASPIRIN (EC) 81 MG TAB PO (09:06)
[2017-12-05] MEDS: BACLOFEN 10 MG TAB PO ×3 (09:06→21:02)
[2017-12-05] MEDS: TRIMETHOPRIM/SULFAMETHOX (DS) TAB PO (09:06)
[2017-12-05] MEDS: HYDROmorphONE 2 MG TAB PO (11:22)
[2017-12-05] MEDS ORDERED: TRIMETHOPRIM/SULFAMETHOX (DS) TAB PO (11:30)
[2017-12-05] MEDS: ZYVOX 600 MG TAB PO ×2 (16:33→21:02)
[2017-12-05] MEDS: GENTAMICIN 0.1% 15 GM OINT TOP (19:34)
[2017-12-05] MEDS: CLOTRIMAZOLE 1% 30 GM CR TOP (19:34)
[2017-12-05] MEDS: SENNA TAB PO (21:02)
[2017-12-05] MEDS: INSULIN GLARGINE [LANtus] 3 ML PEN SC (21:13)
[2017-12-05] MEDS: LATANOPROST 0.005% 2.5 ML OPH BOTH EYES (21:17)
[2017-12-05] MEDS: ZOLPIDEM 5 MG TAB PO (23:08)
[2017-12-05] MEDS: EUCERIN 113 GM CR TOP (23:09)
[2017-12-06] MEDS: HYDROmorphONE 1 MG/ML SYG IV ×3 (00:01→11:28)
[2017-12-06] MEDS: INSULIN ASPART [NOVOLOG] 3 ML PEN SC ×7 (08:00→21:00)
[2017-12-06] MEDS: CLOTRIMAZOLE 1% 30 GM CR TOP (09:07)
[2017-12-06] MEDS: GENTAMICIN 0.1% 15 GM OINT TOP (09:08)
[2017-12-06] MEDS: LINAGLIPTIN 5 MG TABLET PO (09:08)
[2017-12-06] MEDS: DOCUSATE SODIUM 100 MG CAP PO ×2 (09:09→21:02)
[2017-12-06] MEDS: GABAPENTIN 400 MG CAP PO ×3 (09:09→21:01)
[2017-12-06] MEDS: ZYVOX 600 MG TAB PO ×2 (09:09→21:02)
[2017-12-06] MEDS: oxyCODONE (CR) 20 MG TAB [oxyCONTIN] PO ×2 (09:09→21:02)
[2017-12-06] MEDS: ASPIRIN (EC) 81 MG TAB PO (09:09)
[2017-12-06] MEDS: BACLOFEN 10 MG TAB PO ×2 (09:09→21:02)
[2017-12-06] MEDS: CEFTAZIDIME 2GM/50 ML (PMX) 50 ML IVPB ×2 (09:10→21:01)
[2017-12-06] MEDS: ACETAMINOPHEN 325 MG TAB PO (13:16)
[2017-12-06 14:58] LABS: ADD MAN DIFF? NO
[2017-12-06 15:05] LABS: BASOPHILS % 0.2 % (0.0-2.0); EOSINOPHILS # 0.1 10^3/ul (0.0-0.5); EOSINOPHILS % 1.6 % (0.0-7.0); HEMATOCRIT 31.1 % (42.0-52.0); LYMPHOCYTES # 1.2 10^3/ul (0.8-2.9); LYMPHOCYTES % 13.7 % (15.0-51.0); MEAN CORPUSCULAR HEMOGLOBIN 26.7 pg (29.0-33.0); MEAN CORPUSCULAR HGB CONC 32.2 g/dl (32.0-37.0); MEAN CORPUSCULAR VOLUME 83.2 fl (82.0-101.0); MEAN PLATELET VOLUME 8.6 fl (7.4-10.4); MONOCYTE # 0.6 10^3/ul (0.3-0.9); NEUTROPHIL # 6.8 10^3/ul (1.6-7.5); NEUTROPHILS % 77.2 % (39.0-77.0); PLATELET COUNT 297 10^3/UL (140-415); RED BLOOD COUNT 3.74 10^6/ul (4.70-6.10); RED CELL DISTRIBUTION WIDTH 12.6 % (11.5-14.5)
[2017-12-06 15:05] LABS: WHITE BLOOD COUNT 8.8 10^3/ul (4.8-10.8)
[2017-12-06 15:18] LABS: ANION GAP 12 (8-16); BLOOD UREA NITROGEN 22 mg/dl (7-20); CALCIUM 9.6 mg/dl (8.4-10.2); CARBON DIOXIDE 30 mmol/L (21-31); CHLORIDE 103 mmol/L (97-110); CREATININE 0.73 mg/dl (0.61-1.24); GLUCOSE 89 mg/dl (70-220); POTASSIUM 5.3 mmol/L (3.5-5.1); SODIUM 140 mmol/L (135-144)
[2017-12-06] MEDS: BACLOFEN 10 MG TAB GTB (18:03)
[2017-12-06] MEDS ORDERED: BACLOFEN 10 MG TAB GTB (21:00)
[2017-12-06] MEDS: LATANOPROST 0.005% 2.5 ML OPH BOTH EYES (21:01)
[2017-12-06] MEDS: SENNA TAB PO (21:02)
[2017-12-06] MEDS: INSULIN GLARGINE [LANtus] 3 ML PEN SC (21:14)
[2017-12-07] MEDS: HYDROmorphONE 1 MG/ML SYG IV ×3 (01:05→20:21)
[2017-12-07] MEDS: INSULIN ASPART [NOVOLOG] 3 ML PEN SC ×7 (07:35→20:41)
[2017-12-07] MEDS: oxyCODONE (CR) 20 MG TAB [oxyCONTIN] PO ×2 (09:19→20:24)
[2017-12-07] MEDS: BACLOFEN 10 MG TAB GTB ×2 (09:19→17:41)
[2017-12-07] MEDS: DOCUSATE SODIUM 100 MG CAP PO ×2 (09:19→20:25)
[2017-12-07] MEDS: ZYVOX 600 MG TAB PO ×2 (09:19→20:30)
[2017-12-07] MEDS: ASPIRIN (EC) 81 MG TAB PO (09:19)
[2017-12-07] MEDS: GABAPENTIN 400 MG CAP PO ×3 (09:19→20:25)
[2017-12-07] MEDS: LINAGLIPTIN 5 MG TABLET PO (09:20)
[2017-12-07] MEDS: GENTAMICIN 0.1% 15 GM OINT TOP (09:20)
[2017-12-07] MEDS: CLOTRIMAZOLE 1% 30 GM CR TOP (09:20)
[2017-12-07] MEDS: CEFTAZIDIME 2GM/50 ML (PMX) 50 ML IVPB ×2 (09:21→20:24)
[2017-12-07] MEDS: ONDANSETRON 4 MG INJ IV (11:44)
[2017-12-07] MEDS: LATANOPROST 0.005% 2.5 ML OPH BOTH EYES (20:24)
[2017-12-07] MEDS: BACLOFEN 10 MG TAB PO (20:25)
[2017-12-07] MEDS: SENNA TAB PO (20:26)
[2017-12-07] MEDS: INSULIN GLARGINE [LANtus] 3 ML PEN SC (20:40)
[2017-12-07] MEDS: ZOLPIDEM 5 MG TAB PO (23:14)
[2017-12-08] MEDS: HYDROmorphONE 1 MG/ML SYG IV ×3 (01:03→20:29)
[2017-12-08] MEDS: INSULIN ASPART [NOVOLOG] 3 ML PEN SC ×7 (07:35→21:00)
[2017-12-08] MEDS: ONDANSETRON 4 MG INJ IV (07:54)
[2017-12-08] MEDS: CEFTAZIDIME 2GM/50 ML (PMX) 50 ML IVPB ×2 (08:17→20:30)
[2017-12-08] MEDS: BACLOFEN 10 MG TAB GTB ×2 (09:17→16:58)
[2017-12-08] MEDS: ASPIRIN (EC) 81 MG TAB PO (09:18)
[2017-12-08] MEDS: LINAGLIPTIN 5 MG TABLET PO (09:18)
[2017-12-08] MEDS: GABAPENTIN 400 MG CAP PO ×3 (09:18→20:31)
[2017-12-08] MEDS: DOCUSATE SODIUM 100 MG CAP PO ×2 (09:18→20:31)
[2017-12-08] MEDS: oxyCODONE (CR) 20 MG TAB [oxyCONTIN] PO ×2 (09:18→21:18)
[2017-12-08] MEDS: ZYVOX 600 MG TAB PO ×2 (09:18→21:17)
[2017-12-08] MEDS: GENTAMICIN 0.1% 15 GM OINT TOP (09:19)
[2017-12-08] MEDS: CLOTRIMAZOLE 1% 30 GM CR TOP (09:19)
[2017-12-08] MEDS: LATANOPROST 0.005% 2.5 ML OPH BOTH EYES (20:30)
[2017-12-08] MEDS: BACLOFEN 10 MG TAB PO (20:32)
[2017-12-08] MEDS: SENNA TAB PO (21:18)
[2017-12-08] MEDS: INSULIN GLARGINE [LANtus] 3 ML PEN SC (21:24)
[2017-12-08] MEDS: EUCERIN 113 GM CR TOP (23:16)
[2017-12-08] MEDS: ZOLPIDEM 5 MG TAB PO (23:17)
[2017-12-09] MEDS: HYDROmorphONE 1 MG/ML SYG IV ×6 (00:35→22:12)
[2017-12-09] MEDS: ONDANSETRON 4 MG INJ IV (05:10)
[2017-12-09] MEDS: LACTULOSE 30ML CUP PO (05:10)
[2017-12-09] MEDS: INSULIN ASPART [NOVOLOG] 3 ML PEN SC ×7 (08:04→21:03)
[2017-12-09] MEDS: ASPIRIN (EC) 81 MG TAB PO (09:07)
[2017-12-09] MEDS: oxyCODONE (CR) 20 MG TAB [oxyCONTIN] PO ×2 (09:07→21:00)
[2017-12-09] MEDS: DOCUSATE SODIUM 100 MG CAP PO ×2 (09:07→21:00)
[2017-12-09] MEDS: BACLOFEN 10 MG TAB GTB ×2 (09:08→18:58)
[2017-12-09] MEDS: GABAPENTIN 400 MG CAP PO ×3 (09:10→21:00)
[2017-12-09] MEDS: LINAGLIPTIN 5 MG TABLET PO (09:10)
[2017-12-09] MEDS: CEFTAZIDIME 2GM/50 ML (PMX) 50 ML IVPB ×2 (11:12→20:58)
[2017-12-09] MEDS: CLOTRIMAZOLE 1% 30 GM CR TOP (11:16)
[2017-12-09] MEDS: GENTAMICIN 0.1% 15 GM OINT TOP (11:16)
[2017-12-09] MEDS: HYDROmorphONE 2 MG TAB PO (11:28)
[2017-12-09] MEDS: ZYVOX 600 MG TAB PO ×2 (11:37→21:00)
[2017-12-09] MEDS: LATANOPROST 0.005% 2.5 ML OPH BOTH EYES (20:59)
[2017-12-09] MEDS: SENNA TAB PO (20:59)
[2017-12-09] MEDS: BACLOFEN 10 MG TAB PO (21:00)
[2017-12-09] MEDS: INSULIN GLARGINE [LANtus] 3 ML PEN SC (21:04)
[2017-12-09] MEDS: ZOLPIDEM 5 MG TAB PO (23:39)
[2017-12-10] MEDS: HYDROmorphONE 1 MG/ML SYG IV ×5 (02:19→21:02)
[2017-12-10] MEDS: ONDANSETRON 4 MG INJ IV (06:10)
[2017-12-10] MEDS: INSULIN ASPART [NOVOLOG] 3 ML PEN SC ×7 (08:05→20:51)
[2017-12-10] MEDS: CLOTRIMAZOLE 1% 30 GM CR TOP (09:00)
[2017-12-10] MEDS: GENTAMICIN 0.1% 15 GM OINT TOP (09:00)
[2017-12-10] MEDS: oxyCODONE (CR) 20 MG TAB [oxyCONTIN] PO ×2 (11:41→20:51)
[2017-12-10] MEDS: ASPIRIN (EC) 81 MG TAB PO (11:41)
[2017-12-10] MEDS: DOCUSATE SODIUM 100 MG CAP PO ×2 (11:42→20:51)
[2017-12-10] MEDS: LINAGLIPTIN 5 MG TABLET PO (11:42)
[2017-12-10] MEDS: GABAPENTIN 400 MG CAP PO ×3 (11:44→20:50)
[2017-12-10] MEDS: ZYVOX 600 MG TAB PO ×2 (11:45→20:50)
[2017-12-10] MEDS: BACLOFEN 10 MG TAB GTB ×2 (11:50→17:00)
[2017-12-10] MEDS: CEFTAZIDIME 2GM/50 ML (PMX) 50 ML IVPB ×2 (11:50→21:01)
[2017-12-10] MEDS: INSULIN GLARGINE [LANtus] 3 ML PEN SC (20:49)
[2017-12-10] MEDS: LATANOPROST 0.005% 2.5 ML OPH BOTH EYES (20:50)
[2017-12-10] MEDS: SENNA TAB PO (20:50)
[2017-12-10] MEDS: BACLOFEN 10 MG TAB PO (20:51)
[2017-12-10] MEDS: ZOLPIDEM 5 MG TAB PO (23:50)
[2017-12-11] MEDS: HYDROmorphONE 1 MG/ML SYG IV ×4 (01:15→21:42)
[2017-12-11] MEDS: ONDANSETRON 4 MG INJ IV ×3 (04:19→23:29)
[2017-12-11] MEDS: INSULIN ASPART [NOVOLOG] 3 ML PEN SC ×7 (07:35→20:39)
[2017-12-11 08:34] LABS: ADD MAN DIFF? NO
[2017-12-11 08:52] LABS: BASOPHILS % 0.3 % (0.0-2.0); EOSINOPHILS # 0.3 10^3/ul (0.0-0.5); EOSINOPHILS % 4.2 % (0.0-7.0); HEMATOCRIT 30.3 % (42.0-52.0); LYMPHOCYTES # 1.8 10^3/ul (0.8-2.9); LYMPHOCYTES % 29.2 % (15.0-51.0); MEAN CORPUSCULAR HEMOGLOBIN 27.4 pg (29.0-33.0); MONOCYTE # 0.4 10^3/ul (0.3-0.9); MONOCYTES % 7.3 % (0.0-11.0); NEUTROPHIL # 3.5 10^3/ul (1.6-7.5); NEUTROPHILS % 58.8 % (39.0-77.0); PLATELET COUNT 273 10^3/UL (140-415); RED BLOOD COUNT 3.65 10^6/ul (4.70-6.10)
[2017-12-11 09:26] LABS: ANION GAP 14 (8-16); BLOOD UREA NITROGEN 14 mg/dl (7-20); CALCIUM 9.1 mg/dl (8.4-10.2); CARBON DIOXIDE 29 mmol/L (21-31); CHLORIDE 102 mmol/L (97-110); GLUCOSE 94 mg/dl (70-220); SODIUM 141 mmol/L (135-144)
[2017-12-11] MEDS: CEFTAZIDIME 2GM/50 ML (PMX) 50 ML IVPB ×2 (10:08→21:42)
[2017-12-11] MEDS: ZYVOX 600 MG TAB PO (10:08)
[2017-12-11] MEDS: DOCUSATE SODIUM 100 MG CAP PO ×2 (10:09→20:38)
[2017-12-11] MEDS: ASPIRIN (EC) 81 MG TAB PO (10:09)
[2017-12-11] MEDS: oxyCODONE (CR) 20 MG TAB [oxyCONTIN] PO ×2 (10:09→20:38)
[2017-12-11] MEDS: GABAPENTIN 400 MG CAP PO ×3 (10:09→20:38)
[2017-12-11] MEDS: LINAGLIPTIN 5 MG TABLET PO (10:09)
[2017-12-11] MEDS: BACLOFEN 10 MG TAB GTB ×2 (10:09→17:03)
[2017-12-11] MEDS: CLOTRIMAZOLE 1% 30 GM CR TOP (10:13)
[2017-12-11] MEDS: GENTAMICIN 0.1% 15 GM OINT TOP (10:13)
[2017-12-11] MEDS: HYDROmorphONE 2 MG TAB PO (14:50)
[2017-12-11] MEDS: DAPTOMYCIN IVPB ×2 (16:00→17:03)
[2017-12-11] MEDS: SOD CHLORIDE 0.9% IVPB ×2 (16:00→17:03)
[2017-12-11] MEDS: LATANOPROST 0.005% 2.5 ML OPH BOTH EYES (20:38)
[2017-12-11] MEDS: SENNA TAB PO (20:38)
[2017-12-11] MEDS: BACLOFEN 10 MG TAB PO (20:38)
[2017-12-11] MEDS: INSULIN GLARGINE [LANtus] 3 ML PEN SC (20:43)
[2017-12-11] MEDS: ZOLPIDEM 5 MG TAB PO (23:29)
[2017-12-12] MEDS: ONDANSETRON 4 MG INJ IV ×2 (05:03→10:42)
[2017-12-12] MEDS: INSULIN ASPART [NOVOLOG] 3 ML PEN SC ×7 (07:35→21:00)
[2017-12-12] MEDS: HYDROmorphONE 1 MG/ML SYG IV ×7 (07:46→21:59)
[2017-12-12 08:51] LABS: CREATINE KINASE 69 IU/L (23-200)
[2017-12-12] MEDS: CEFTAZIDIME 2GM/50 ML (PMX) 50 ML IVPB ×2 (09:08→20:43)
[2017-12-12] MEDS: GABAPENTIN 400 MG CAP PO ×3 (09:36→20:42)
[2017-12-12] MEDS: oxyCODONE (CR) 20 MG TAB [oxyCONTIN] PO ×2 (09:36→20:42)
[2017-12-12] MEDS: LINAGLIPTIN 5 MG TABLET PO (09:37)
[2017-12-12] MEDS: DOCUSATE SODIUM 100 MG CAP PO ×2 (09:37→20:42)
[2017-12-12] MEDS: ASPIRIN (EC) 81 MG TAB PO (09:37)
[2017-12-12] MEDS: ARTIFICIAL TEARS 15 ML OPH BOTH EYES (12:20)
[2017-12-12] MEDS: VITAMIN A & D 5 GM OINT PACKET TOP ×2 (12:24→20:55)
[2017-12-12] MEDS: BACLOFEN 10 MG TAB GTB ×2 (13:01→17:41)
[2017-12-12] MEDS: GENTAMICIN 0.1% 15 GM OINT TOP (16:24)
[2017-12-12] MEDS: CLOTRIMAZOLE 1% 30 GM CR TOP (16:24)
[2017-12-12] MEDS: DAPTOMYCIN IVPB (16:25)
[2017-12-12] MEDS: SOD CHLORIDE 0.9% IVPB (16:25)
[2017-12-12] MEDS: SENNA TAB PO (20:42)
[2017-12-12] MEDS: BACLOFEN 10 MG TAB PO (20:42)
[2017-12-12] MEDS: LATANOPROST 0.005% 2.5 ML OPH BOTH EYES (20:51)
[2017-12-12] MEDS: INSULIN GLARGINE [LANtus] 3 ML PEN SC (20:53)
[2017-12-12] MEDS: EUCERIN 113 GM CR TOP (22:02)
[2017-12-12] MEDS: ZOLPIDEM 5 MG TAB PO (22:58)
[2017-12-13] MEDS: HYDROmorphONE 1 MG/ML SYG IV ×5 (02:10→23:18)
[2017-12-13] MEDS: ONDANSETRON 4 MG INJ IV ×3 (05:09→19:00)
[2017-12-13] MEDS: INSULIN ASPART [NOVOLOG] 3 ML PEN SC ×7 (07:35→20:27)
[2017-12-13] MEDS: CLOTRIMAZOLE 1% 30 GM CR TOP (08:42)
[2017-12-13] MEDS: GENTAMICIN 0.1% 15 GM OINT TOP (08:42)
[2017-12-13] MEDS: VITAMIN A & D 5 GM OINT PACKET TOP ×2 (08:43→20:26)
[2017-12-13] MEDS: CEFTAZIDIME 2GM/50 ML (PMX) 50 ML IVPB ×2 (08:43→20:38)
[2017-12-13] MEDS: ACETAMINOPHEN 325 MG TAB PO (08:44)
[2017-12-13] MEDS: GABAPENTIN 400 MG CAP PO ×3 (08:45→20:24)
[2017-12-13] MEDS: BACLOFEN 10 MG TAB GTB ×2 (08:45→17:06)
[2017-12-13] MEDS: LINAGLIPTIN 5 MG TABLET PO (08:45)
[2017-12-13] MEDS: DOCUSATE SODIUM 100 MG CAP PO ×2 (08:45→20:24)
[2017-12-13] MEDS: oxyCODONE (CR) 20 MG TAB [oxyCONTIN] PO ×2 (08:45→20:25)
[2017-12-13] MEDS: ASPIRIN (EC) 81 MG TAB PO (08:45)
[2017-12-13] MEDS ORDERED: HYDROCODONE/APAP (10/325) TAB PO (11:30)
[2017-12-13] MEDS: DAPTOMYCIN IVPB (16:17)
[2017-12-13] MEDS: SOD CHLORIDE 0.9% IVPB (16:17)
[2017-12-13] MEDS: BACLOFEN 10 MG TAB PO (20:24)
[2017-12-13] MEDS: SENNA TAB PO (20:24)
[2017-12-13] MEDS: LATANOPROST 0.005% 2.5 ML OPH BOTH EYES (20:26)
[2017-12-13] MEDS: INSULIN GLARGINE [LANtus] 3 ML PEN SC (20:28)
[2017-12-14] MEDS: ZOLPIDEM 5 MG TAB PO (00:15)
[2017-12-14] MEDS: ONDANSETRON 4 MG INJ IV ×2 (04:31→15:24)
[2017-12-14] MEDS: HYDROmorphONE 1 MG/ML SYG IV ×4 (04:31→21:09)
[2017-12-14] MEDS: INSULIN ASPART [NOVOLOG] 3 ML PEN SC ×7 (08:21→21:00)
[2017-12-14] MEDS: LINAGLIPTIN 5 MG TABLET PO (08:59)
[2017-12-14] MEDS: GABAPENTIN 400 MG CAP PO ×3 (08:59→20:58)
[2017-12-14] MEDS: ASPIRIN (EC) 81 MG TAB PO (08:59)
[2017-12-14] MEDS: DOCUSATE SODIUM 100 MG CAP PO ×2 (08:59→20:58)
[2017-12-14] MEDS: oxyCODONE (CR) 20 MG TAB [oxyCONTIN] PO ×2 (09:00→21:00)
[2017-12-14] MEDS: CEFTAZIDIME 2GM/50 ML (PMX) 50 ML IVPB ×2 (09:00→21:01)
[2017-12-14] MEDS: VITAMIN A & D 5 GM OINT PACKET TOP ×2 (09:01→21:08)
[2017-12-14] MEDS: BACLOFEN 10 MG TAB GTB ×2 (09:01→17:25)
[2017-12-14] MEDS: GENTAMICIN 0.1% 15 GM OINT TOP (09:02)
[2017-12-14] MEDS: CLOTRIMAZOLE 1% 30 GM CR TOP (09:02)
[2017-12-14 09:36] LABS: CREATININE 0.65 mg/dl (0.61-1.24)
[2017-12-14 09:36] LABS: BLOOD UREA NITROGEN 14 mg/dl (7-20)
[2017-12-14] MEDS: HYDROCODONE/APAP (10/325) TAB PO (12:02)
[2017-12-14] MEDS: SOD CHLORIDE 0.9% IVPB (15:25)
[2017-12-14] MEDS: DAPTOMYCIN IVPB (15:25)
[2017-12-14] MEDS: SENNA TAB PO (20:58)
[2017-12-14] MEDS: BACLOFEN 10 MG TAB PO (20:59)
[2017-12-14] MEDS: LATANOPROST 0.005% 2.5 ML OPH BOTH EYES (21:00)
[2017-12-14] MEDS: ALTEPLASE (CATHFLO) 2 MG INJ CATHETER (21:01)
[2017-12-14] MEDS: INSULIN GLARGINE [LANtus] 3 ML PEN SC (21:24)
[2017-12-15] MEDS: ZOLPIDEM 5 MG TAB PO ×2 (00:24→22:59)
[2017-12-15] MEDS: HYDROmorphONE 1 MG/ML SYG IV ×4 (02:58→20:34)
[2017-12-15] MEDS: ONDANSETRON 4 MG INJ IV ×4 (02:58→22:59)
[2017-12-15] MEDS: INSULIN ASPART [NOVOLOG] 3 ML PEN SC ×7 (07:35→20:50)
[2017-12-15] MEDS: CLOTRIMAZOLE 1% 30 GM CR TOP (09:00)
[2017-12-15] MEDS: GENTAMICIN 0.1% 15 GM OINT TOP (09:00)
[2017-12-15] MEDS: VITAMIN A & D 5 GM OINT PACKET TOP ×2 (10:35→20:33)
[2017-12-15] MEDS: LINAGLIPTIN 5 MG TABLET PO (10:35)
[2017-12-15] MEDS: GABAPENTIN 400 MG CAP PO ×3 (10:35→20:34)
[2017-12-15] MEDS: ASPIRIN (EC) 81 MG TAB PO (10:35)
[2017-12-15] MEDS: DOCUSATE SODIUM 100 MG CAP PO ×2 (10:35→20:34)
[2017-12-15] MEDS: oxyCODONE (CR) 20 MG TAB [oxyCONTIN] PO ×2 (10:36→20:33)
[2017-12-15] MEDS: CEFTAZIDIME 2GM/50 ML (PMX) 50 ML IVPB ×2 (10:36→20:32)
[2017-12-15] MEDS: BACLOFEN 10 MG TAB GTB ×2 (10:40→17:00)
[2017-12-15] MEDS: ACETAMINOPHEN 325 MG TAB PO (12:14)
[2017-12-15] MEDS: SOD CHLORIDE 0.9% IVPB (15:47)
[2017-12-15] MEDS: DAPTOMYCIN IVPB (15:47)
[2017-12-15] MEDS: LATANOPROST 0.005% 2.5 ML OPH BOTH EYES (20:33)
[2017-12-15] MEDS: SENNA TAB PO (20:34)
[2017-12-15] MEDS: BACLOFEN 10 MG TAB PO (20:34)
[2017-12-15] MEDS: INSULIN GLARGINE [LANtus] 3 ML PEN SC (20:50)
[2017-12-16] MEDS: HYDROmorphONE 1 MG/ML SYG IV ×5 (01:10→19:34)
[2017-12-16] MEDS: ONDANSETRON 4 MG INJ IV (07:53)
[2017-12-16] MEDS: INSULIN ASPART [NOVOLOG] 3 ML PEN SC ×7 (07:58→21:00)
[2017-12-16] MEDS: GABAPENTIN 400 MG CAP PO ×3 (09:43→20:48)
[2017-12-16] MEDS: LINAGLIPTIN 5 MG TABLET PO (09:43)
[2017-12-16] MEDS: oxyCODONE (CR) 20 MG TAB [oxyCONTIN] PO ×2 (09:43→20:48)
[2017-12-16] MEDS: DOCUSATE SODIUM 100 MG CAP PO ×2 (09:43→20:47)
[2017-12-16] MEDS: ASPIRIN (EC) 81 MG TAB PO (09:45)
[2017-12-16] MEDS: CEFTAZIDIME 2GM/50 ML (PMX) 50 ML IVPB ×2 (09:45→20:46)
[2017-12-16] MEDS: BACLOFEN 10 MG TAB GTB ×2 (09:47→17:00)
[2017-12-16] MEDS: VITAMIN A & D 5 GM OINT PACKET TOP ×2 (09:47→20:48)
[2017-12-16] MEDS: ARTIFICIAL TEARS 15 ML OPH BOTH EYES (11:17)
[2017-12-16] MEDS: DAPTOMYCIN IVPB (18:13)
[2017-12-16] MEDS: SOD CHLORIDE 0.9% IVPB (18:13)
[2017-12-16] MEDS: HYDROCODONE/APAP (10/325) TAB PO (18:37)
[2017-12-16] MEDS: CLOTRIMAZOLE 1% 30 GM CR TOP (19:00)
[2017-12-16] MEDS: GENTAMICIN 0.1% 15 GM OINT TOP (19:00)
[2017-12-16] MEDS: LATANOPROST 0.005% 2.5 ML OPH BOTH EYES (20:47)
[2017-12-16] MEDS: SENNA TAB PO (20:47)
[2017-12-16] MEDS: BACLOFEN 10 MG TAB PO (20:48)
[2017-12-16] MEDS: INSULIN GLARGINE [LANtus] 3 ML PEN SC (23:19)
[2017-12-16] MEDS: ZOLPIDEM 5 MG TAB PO (23:33)
[2017-12-17] MEDS: ONDANSETRON 4 MG INJ IV ×2 (04:25→20:33)
[2017-12-17] MEDS: HYDROmorphONE 1 MG/ML SYG IV ×4 (04:25→20:33)
[2017-12-17] MEDS: INSULIN ASPART [NOVOLOG] 3 ML PEN SC ×7 (08:30→21:00)
[2017-12-17] MEDS: ASPIRIN (EC) 81 MG TAB PO (08:31)
[2017-12-17] MEDS: CEFTAZIDIME 2GM/50 ML (PMX) 50 ML IVPB ×2 (09:31→20:23)
[2017-12-17] MEDS: VITAMIN A & D 5 GM OINT PACKET TOP ×2 (09:31→21:00)
[2017-12-17] MEDS: GABAPENTIN 400 MG CAP PO ×3 (09:31→21:12)
[2017-12-17] MEDS: oxyCODONE (CR) 20 MG TAB [oxyCONTIN] PO ×2 (09:32→20:24)
[2017-12-17] MEDS: LINAGLIPTIN 5 MG TABLET PO (09:32)
[2017-12-17] MEDS: DOCUSATE SODIUM 100 MG CAP PO ×2 (09:32→20:23)
[2017-12-17] MEDS: BACLOFEN 10 MG TAB GTB ×2 (09:35→16:21)
[2017-12-17] MEDS: GENTAMICIN 0.1% 15 GM OINT TOP (09:40)
[2017-12-17] MEDS: CLOTRIMAZOLE 1% 30 GM CR TOP (09:41)
[2017-12-17] MEDS: SOD CHLORIDE 0.9% IVPB (16:17)
[2017-12-17] MEDS: DAPTOMYCIN IVPB (16:17)
[2017-12-17] MEDS ORDERED: INSULIN GLARGINE [LANtus] 3 ML PEN SC (20:00)
[2017-12-17] MEDS: SENNA TAB PO (20:23)
[2017-12-17] MEDS: BACLOFEN 10 MG TAB PO (20:24)
[2017-12-17] MEDS: LATANOPROST 0.005% 2.5 ML OPH BOTH EYES (20:24)
[2017-12-17] MEDS: INSULIN GLARGINE [LANtus] 3 ML PEN SC (20:33)
[2017-12-17] MEDS: ZOLPIDEM 5 MG TAB PO (23:26)
[2017-12-18] MEDS: ONDANSETRON 4 MG INJ IV (04:25)
[2017-12-18] MEDS: INSULIN ASPART [NOVOLOG] 3 ML PEN SC ×7 (08:53→21:00)
[2017-12-18] MEDS: DOCUSATE SODIUM 100 MG CAP PO ×2 (10:28→20:21)
[2017-12-18] MEDS: GABAPENTIN 400 MG CAP PO ×3 (10:29→20:21)
[2017-12-18] MEDS: LINAGLIPTIN 5 MG TABLET PO (10:29)
[2017-12-18] MEDS: oxyCODONE (CR) 20 MG TAB [oxyCONTIN] PO ×2 (10:29→20:21)
[2017-12-18] MEDS: CEFTAZIDIME 2GM/50 ML (PMX) 50 ML IVPB ×2 (10:30→20:19)
[2017-12-18] MEDS: CLOTRIMAZOLE 1% 30 GM CR TOP (10:30)
[2017-12-18] MEDS: GENTAMICIN 0.1% 15 GM OINT TOP (10:30)
[2017-12-18] MEDS: VITAMIN A & D 5 GM OINT PACKET TOP ×2 (10:31→21:00)
[2017-12-18] MEDS: ASPIRIN (EC) 81 MG TAB PO (10:43)
[2017-12-18] MEDS: BACLOFEN 10 MG TAB GTB ×2 (10:43→17:51)
[2017-12-18] MEDS: HYDROmorphONE 1 MG/ML SYG IV ×3 (11:09→20:41)
[2017-12-18] MEDS: SOD CHLORIDE 0.9% IVPB (16:03)
[2017-12-18] MEDS: DAPTOMYCIN IVPB (16:03)
[2017-12-18] MEDS: LATANOPROST 0.005% 2.5 ML OPH BOTH EYES (20:20)
[2017-12-18] MEDS: SENNA TAB PO (20:21)
[2017-12-18] MEDS: BACLOFEN 10 MG TAB PO (20:22)
[2017-12-18] MEDS: INSULIN GLARGINE [LANtus] 3 ML PEN SC (20:40)
[2017-12-18] MEDS: ZOLPIDEM 5 MG TAB PO (23:11)
[2017-12-19] MEDS: ONDANSETRON 4 MG INJ IV (05:26)
[2017-12-19 07:50] LABS: CREATINE KINASE 61 IU/L (23-200)
[2017-12-19] MEDS: HYDROmorphONE 1 MG/ML SYG IV ×6 (07:52→22:07)
[2017-12-19] MEDS: INSULIN ASPART [NOVOLOG] 3 ML PEN SC ×7 (08:18→20:47)
[2017-12-19] MEDS: VITAMIN A & D 5 GM OINT PACKET TOP ×2 (09:00→20:46)
[2017-12-19] MEDS: DOCUSATE SODIUM 100 MG CAP PO ×2 (10:00→20:46)
[2017-12-19] MEDS: oxyCODONE (CR) 20 MG TAB [oxyCONTIN] PO ×2 (10:00→20:47)
[2017-12-19] MEDS: ASPIRIN (EC) 81 MG TAB PO (10:00)
[2017-12-19] MEDS: GABAPENTIN 400 MG CAP PO ×3 (10:00→20:46)
[2017-12-19] MEDS: LINAGLIPTIN 5 MG TABLET PO (10:00)
[2017-12-19] MEDS: ARTIFICIAL TEARS 15 ML OPH BOTH EYES (10:02)
[2017-12-19] MEDS: CEFTAZIDIME 2GM/50 ML (PMX) 50 ML IVPB ×2 (11:09→20:53)
[2017-12-19] MEDS: BACLOFEN 10 MG TAB GTB ×2 (11:40→19:02)
[2017-12-19] MEDS: SOD CHLORIDE 0.9% IVPB (16:00)
[2017-12-19] MEDS: DAPTOMYCIN IVPB (16:00)
[2017-12-19] MEDS: GENTAMICIN 0.1% 15 GM OINT TOP (17:39)
[2017-12-19] MEDS: CLOTRIMAZOLE 1% 30 GM CR TOP (17:40)
[2017-12-19] MEDS: SENNA TAB PO (20:46)
[2017-12-19] MEDS: BACLOFEN 10 MG TAB PO (20:46)
[2017-12-19] MEDS: LATANOPROST 0.005% 2.5 ML OPH BOTH EYES (20:48)
[2017-12-19] MEDS: INSULIN GLARGINE [LANtus] 3 ML PEN SC (20:50)
[2017-12-19] MEDS: ZOLPIDEM 5 MG TAB PO (22:56)
[2017-12-20] MEDS: HYDROmorphONE 1 MG/ML SYG IV ×4 (02:55→21:14)
[2017-12-20] MEDS: ONDANSETRON 4 MG INJ IV (03:06)
[2017-12-20] MEDS: ASPIRIN (EC) 81 MG TAB PO (08:17)
[2017-12-20] MEDS: VITAMIN A & D 5 GM OINT PACKET TOP ×2 (08:17→21:07)
[2017-12-20] MEDS: oxyCODONE (CR) 20 MG TAB [oxyCONTIN] PO ×2 (08:17→21:59)
[2017-12-20] MEDS: DOCUSATE SODIUM 100 MG CAP PO ×2 (08:17→21:07)
[2017-12-20] MEDS: LINAGLIPTIN 5 MG TABLET PO (08:17)
[2017-12-20] MEDS: GABAPENTIN 400 MG CAP PO ×3 (08:17→21:07)
[2017-12-20] MEDS: GENTAMICIN 0.1% 15 GM OINT TOP (08:18)
[2017-12-20] MEDS: CLOTRIMAZOLE 1% 30 GM CR TOP (08:18)
[2017-12-20] MEDS: INSULIN ASPART [NOVOLOG] 3 ML PEN SC ×7 (08:21→21:00)
[2017-12-20] MEDS: BACLOFEN 10 MG TAB GTB ×2 (08:24→18:03)
[2017-12-20] MEDS: CEFTAZIDIME 2GM/50 ML (PMX) 50 ML IVPB ×2 (09:29→21:07)
[2017-12-20] MEDS: DAPTOMYCIN IVPB (16:28)
[2017-12-20] MEDS: SOD CHLORIDE 0.9% IVPB (16:28)
[2017-12-20] MEDS: LATANOPROST 0.005% 2.5 ML OPH BOTH EYES (21:07)
[2017-12-20] MEDS: SENNA TAB PO (21:07)
[2017-12-20] MEDS: BACLOFEN 10 MG TAB PO (21:07)
[2017-12-20] MEDS: INSULIN GLARGINE [LANtus] 3 ML PEN SC (21:11)
[2017-12-20] MEDS: ZOLPIDEM 5 MG TAB PO (22:54)
[2017-12-21] MEDS: HYDROmorphONE 1 MG/ML SYG IV ×4 (02:04→20:34)
[2017-12-21] MEDS: ACETAMINOPHEN 325 MG TAB PO (02:34)
[2017-12-21] MEDS: INSULIN ASPART [NOVOLOG] 3 ML PEN SC ×7 (07:35→20:28)
[2017-12-21] MEDS: ONDANSETRON 4 MG INJ IV (08:51)
[2017-12-21] MEDS: DOCUSATE SODIUM 100 MG CAP PO ×2 (08:55→20:28)
[2017-12-21] MEDS: VITAMIN A & D 5 GM OINT PACKET TOP ×2 (08:55→20:28)
[2017-12-21] MEDS: oxyCODONE (CR) 20 MG TAB [oxyCONTIN] PO ×3 (08:55→21:58)
[2017-12-21] MEDS: ASPIRIN (EC) 81 MG TAB PO (08:55)
[2017-12-21] MEDS: LINAGLIPTIN 5 MG TABLET PO (08:56)
[2017-12-21] MEDS: GABAPENTIN 400 MG CAP PO ×3 (08:56→20:28)
[2017-12-21] MEDS: CEFTAZIDIME 2GM/50 ML (PMX) 50 ML IVPB ×2 (08:58→20:27)
[2017-12-21] MEDS: BACLOFEN 10 MG TAB GTB ×2 (09:25→18:44)
[2017-12-21] MEDS: CLOTRIMAZOLE 1% 30 GM CR TOP (09:45)
[2017-12-21] MEDS: GENTAMICIN 0.1% 15 GM OINT TOP (09:46)
[2017-12-21] MEDS: DAPTOMYCIN IVPB (16:10)
[2017-12-21] MEDS: SOD CHLORIDE 0.9% IVPB (16:10)
[2017-12-21] MEDS: SENNA TAB PO (20:28)
[2017-12-21] MEDS: BACLOFEN 10 MG TAB PO (20:28)
[2017-12-21] MEDS: INSULIN GLARGINE [LANtus] 3 ML PEN SC (20:32)
[2017-12-21] MEDS: LATANOPROST 0.005% 2.5 ML OPH BOTH EYES (20:33)
[2017-12-21] MEDS: ZOLPIDEM 5 MG TAB PO (22:57)
[2017-12-21] MEDS: EUCERIN 113 GM CR TOP (22:58)
[2017-12-22] MEDS: HYDROmorphONE 1 MG/ML SYG IV ×9 (02:49→22:13)
[2017-12-22] MEDS: ONDANSETRON 4 MG INJ IV (04:22)
[2017-12-22] MEDS: INSULIN ASPART [NOVOLOG] 3 ML PEN SC ×8 (07:35→20:15)
[2017-12-22] MEDS: DOCUSATE SODIUM 100 MG CAP PO ×2 (08:55→20:14)
[2017-12-22] MEDS: ASPIRIN (EC) 81 MG TAB PO (08:55)
[2017-12-22] MEDS: LINAGLIPTIN 5 MG TABLET PO (08:55)
[2017-12-22] MEDS: GABAPENTIN 400 MG CAP PO ×3 (08:55→20:12)
[2017-12-22] MEDS: oxyCODONE (CR) 20 MG TAB [oxyCONTIN] PO ×2 (08:56→20:18)
[2017-12-22] MEDS: CEFTAZIDIME 2GM/50 ML (PMX) 50 ML IVPB ×2 (09:19→20:13)
[2017-12-22] MEDS: ARTIFICIAL TEARS 15 ML OPH BOTH EYES (10:01)
[2017-12-22] MEDS: BACLOFEN 10 MG TAB GTB ×2 (10:03→18:59)
[2017-12-22] MEDS: VITAMIN A & D 5 GM OINT PACKET TOP ×2 (10:03→20:14)
[2017-12-22] MEDS: DAPTOMYCIN IVPB ×2 (15:49→16:08)
[2017-12-22] MEDS: SOD CHLORIDE 0.9% IVPB ×2 (15:49→16:08)
[2017-12-22] MEDS: GENTAMICIN 0.1% 15 GM OINT TOP (16:10)
[2017-12-22] MEDS: CLOTRIMAZOLE 1% 30 GM CR TOP (16:10)
[2017-12-22] MEDS: LATANOPROST 0.005% 2.5 ML OPH BOTH EYES (20:12)
[2017-12-22] MEDS: BACLOFEN 10 MG TAB PO (20:12)
[2017-12-22] MEDS: INSULIN GLARGINE [LANtus] 3 ML PEN SC (20:18)
[2017-12-22] MEDS: SENNA TAB PO (20:19)
[2017-12-22] MEDS: ZOLPIDEM 5 MG TAB PO (23:13)
[2017-12-22] MEDS: EUCERIN 113 GM CR TOP (23:15)
[2017-12-23] MEDS: HYDROmorphONE 1 MG/ML SYG IV ×6 (01:41→14:27)
[2017-12-23] MEDS: ONDANSETRON 4 MG INJ IV (04:45)
[2017-12-23] MEDS: INSULIN ASPART [NOVOLOG] 3 ML PEN SC ×7 (07:35→20:28)
[2017-12-23] MEDS: BACLOFEN 10 MG TAB GTB ×2 (09:00→18:34)
[2017-12-23] MEDS: LINAGLIPTIN 5 MG TABLET PO (09:00)
[2017-12-23] MEDS: oxyCODONE (CR) 20 MG TAB [oxyCONTIN] PO ×2 (09:07→20:25)
[2017-12-23] MEDS: GABAPENTIN 400 MG CAP PO ×3 (09:07→20:24)
[2017-12-23] MEDS: DOCUSATE SODIUM 100 MG CAP PO ×2 (09:07→20:25)
[2017-12-23] MEDS: ASPIRIN (EC) 81 MG TAB PO (09:07)
[2017-12-23] MEDS: CEFTAZIDIME 2GM/50 ML (PMX) 50 ML IVPB ×2 (10:38→20:28)
[2017-12-23] MEDS: VITAMIN A & D 5 GM OINT PACKET TOP ×2 (12:31→20:24)
[2017-12-23] MEDS: ARTIFICIAL TEARS 15 ML OPH BOTH EYES (12:31)
[2017-12-23] MEDS: GENTAMICIN 0.1% 15 GM OINT TOP ×2 (14:16→20:27)
[2017-12-23] MEDS: HYDROCODONE/APAP (10/325) TAB PO (14:37)
[2017-12-23] MEDS: HYDROmorphONE 2 MG/ML SYG IV ×2 (17:34→20:56)
[2017-12-23] MEDS: SOD CHLORIDE 0.9% IVPB (17:39)
[2017-12-23] MEDS: DAPTOMYCIN IVPB (17:39)
[2017-12-23] MEDS: SENNA TAB PO (20:24)
[2017-12-23] MEDS: BACLOFEN 10 MG TAB PO (20:24)
[2017-12-23] MEDS: LATANOPROST 0.005% 2.5 ML OPH BOTH EYES (20:25)
[2017-12-23] MEDS: CLOTRIMAZOLE 1% 30 GM CR TOP (20:26)
[2017-12-23] MEDS: INSULIN GLARGINE [LANtus] 3 ML PEN SC (20:27)
[2017-12-23] MEDS: EUCERIN 113 GM CR TOP (20:56)
[2017-12-23] MEDS: ZOLPIDEM 5 MG TAB PO (22:53)
[2017-12-24] MEDS: HYDROmorphONE 2 MG/ML SYG IV ×3 (00:02→09:03)
[2017-12-24] MEDS: ONDANSETRON 4 MG INJ IV (04:13)
[2017-12-24] MEDS: INSULIN ASPART [NOVOLOG] 3 ML PEN SC ×7 (07:35→20:34)
[2017-12-24 07:57] LABS: ANION GAP 10 (8-16); BLOOD UREA NITROGEN 16 mg/dl (7-20); CALCIUM 9.1 mg/dl (8.4-10.2); CARBON DIOXIDE 31 mmol/L (21-31); CHLORIDE 104 mmol/L (97-110); CREATININE 0.56 mg/dl (0.61-1.24); GLUCOSE 106 mg/dl (70-220); POTASSIUM 4.2 mmol/L (3.5-5.1); SODIUM 141 mmol/L (135-144)
[2017-12-24] MEDS: LINAGLIPTIN 5 MG TABLET PO (08:47)
[2017-12-24] MEDS: oxyCODONE (CR) 20 MG TAB [oxyCONTIN] PO ×2 (08:47→20:28)
[2017-12-24] MEDS: GABAPENTIN 400 MG CAP PO ×3 (08:47→20:27)
[2017-12-24] MEDS: VITAMIN A & D 5 GM OINT PACKET TOP ×2 (08:47→20:28)
[2017-12-24] MEDS: DOCUSATE SODIUM 100 MG CAP PO ×2 (08:47→20:28)
[2017-12-24] MEDS: CEFTAZIDIME 2GM/50 ML (PMX) 50 ML IVPB ×2 (08:48→20:28)
[2017-12-24] MEDS: CLOTRIMAZOLE 1% 30 GM CR TOP (08:48)
[2017-12-24] MEDS: GENTAMICIN 0.1% 15 GM OINT TOP (08:48)
[2017-12-24] MEDS: ASPIRIN (EC) 81 MG TAB PO (09:02)
[2017-12-24] MEDS: BACLOFEN 10 MG TAB GTB ×2 (09:03→17:51)
[2017-12-24] MEDS: HYDROmorphONE 0.5 MG/0.5 ML SYG IV ×3 (12:52→21:33)
[2017-12-24] MEDS: SENNA TAB PO (20:27)
[2017-12-24] MEDS: BACLOFEN 10 MG TAB PO (20:27)
[2017-12-24] MEDS: LATANOPROST 0.005% 2.5 ML OPH BOTH EYES (20:27)
[2017-12-24] MEDS: INSULIN GLARGINE [LANtus] 3 ML PEN SC (20:33)
[2017-12-25] MEDS: ZOLPIDEM 5 MG TAB PO ×2 (00:09→23:15)
[2017-12-25] MEDS: HYDROmorphONE 0.5 MG/0.5 ML SYG IV ×9 (00:25→21:17)
[2017-12-25] MEDS: ONDANSETRON 4 MG INJ IV (05:58)
[2017-12-25] MEDS: INSULIN ASPART [NOVOLOG] 3 ML PEN SC ×7 (07:35→21:00)
[2017-12-25] MEDS: oxyCODONE (CR) 20 MG TAB [oxyCONTIN] PO ×2 (08:18→09:03)
[2017-12-25] MEDS: CEFTAZIDIME 2GM/50 ML (PMX) 50 ML IVPB ×2 (08:52→20:59)
[2017-12-25] MEDS: BACLOFEN 10 MG TAB GTB ×2 (09:09→18:24)
[2017-12-25] MEDS: GABAPENTIN 400 MG CAP PO ×3 (09:09→20:57)
[2017-12-25] MEDS: LINAGLIPTIN 5 MG TABLET PO (09:10)
[2017-12-25] MEDS: ASPIRIN (EC) 81 MG TAB PO (09:10)
[2017-12-25] MEDS: VITAMIN A & D 5 GM OINT PACKET TOP ×2 (09:11→21:12)
[2017-12-25] MEDS: ARTIFICIAL TEARS 15 ML OPH BOTH EYES (09:12)
[2017-12-25] MEDS: DOCUSATE SODIUM 100 MG CAP PO ×2 (11:08→20:57)
[2017-12-25] MEDS: GENTAMICIN 0.1% 15 GM OINT TOP (14:00)
[2017-12-25] MEDS: SOD CHLORIDE 0.9% IVPB (16:59)
[2017-12-25] MEDS: DAPTOMYCIN IVPB (16:59)
[2017-12-25] MEDS: CLOTRIMAZOLE 1% 30 GM CR TOP (17:01)
[2017-12-25] MEDS: HYDROmorphONE 1 MG/ML SYG IV (17:17)
[2017-12-25] MEDS: BACLOFEN 10 MG TAB PO (20:57)
[2017-12-25] MEDS: SENNA TAB PO (20:58)
[2017-12-25] MEDS: LATANOPROST 0.005% 2.5 ML OPH BOTH EYES (21:11)
[2017-12-25] MEDS: INSULIN GLARGINE [LANtus] 3 ML PEN SC (21:21)
[2017-12-26] MEDS: HYDROmorphONE 0.5 MG/0.5 ML SYG IV ×5 (01:01→23:35)
[2017-12-26] MEDS: ONDANSETRON 4 MG INJ IV (06:46)
[2017-12-26] MEDS: GABAPENTIN 400 MG CAP PO ×3 (08:15→20:40)
[2017-12-26] MEDS: ASPIRIN (EC) 81 MG TAB PO (08:15)
[2017-12-26] MEDS: LINAGLIPTIN 5 MG TABLET PO (08:16)
[2017-12-26] MEDS: BACLOFEN 10 MG TAB GTB ×2 (08:16→17:26)
[2017-12-26] MEDS: oxyCODONE (CR) 20 MG TAB [oxyCONTIN] PO ×2 (08:16→21:48)
[2017-12-26] MEDS: DOCUSATE SODIUM 100 MG CAP PO ×2 (08:16→20:40)
[2017-12-26] MEDS: CEFTAZIDIME 2GM/50 ML (PMX) 50 ML IVPB ×3 (08:18→20:40)
[2017-12-26] MEDS: VITAMIN A & D 5 GM OINT PACKET TOP ×2 (08:19→20:46)
[2017-12-26] MEDS: INSULIN ASPART [NOVOLOG] 3 ML PEN SC ×7 (08:28→20:45)
[2017-12-26] MEDS: DAPTOMYCIN IVPB (16:18)
[2017-12-26] MEDS: SOD CHLORIDE 0.9% IVPB (16:18)
[2017-12-26] MEDS: CLOTRIMAZOLE 1% 30 GM CR TOP (16:43)
[2017-12-26] MEDS: GENTAMICIN 0.1% 15 GM OINT TOP (16:43)
[2017-12-26] MEDS: SENNA TAB PO (20:40)
[2017-12-26] MEDS: INSULIN GLARGINE [LANtus] 3 ML PEN SC (20:44)
[2017-12-26] MEDS: LATANOPROST 0.005% 2.5 ML OPH BOTH EYES (21:48)
[2017-12-26] MEDS: BACLOFEN 10 MG TAB PO (21:48)
[2017-12-27] MEDS: ZOLPIDEM 5 MG TAB PO (00:30)
[2017-12-27] MEDS: ONDANSETRON 4 MG INJ IV (06:37)
[2017-12-27] MEDS: HYDROmorphONE 0.5 MG/0.5 ML SYG IV ×2 (06:37→10:31)
[2017-12-27 07:32] LABS: CREATINE KINASE 81 IU/L (23-200)
[2017-12-27] MEDS: INSULIN ASPART [NOVOLOG] 3 ML PEN SC ×2 (07:35→08:10)
[2017-12-27] MEDS: GABAPENTIN 400 MG CAP PO (09:14)
[2017-12-27] MEDS: DOCUSATE SODIUM 100 MG CAP PO (09:14)
[2017-12-27] MEDS: ASPIRIN (EC) 81 MG TAB PO (09:14)
[2017-12-27] MEDS: LINAGLIPTIN 5 MG TABLET PO (09:15)
[2017-12-27] MEDS: CEFTAZIDIME 2GM/50 ML (PMX) 50 ML IVPB (09:15)
[2017-12-27] MEDS: oxyCODONE (CR) 20 MG TAB [oxyCONTIN] PO (09:15)
[2017-12-27] MEDS: BACLOFEN 10 MG TAB GTB (09:18)
[2017-12-27] MEDS: VITAMIN A & D 5 GM OINT PACKET TOP (09:19)
[2017-12-27] MEDS: CLOTRIMAZOLE 1% 30 GM CR TOP (09:19)
[2017-12-27] MEDS: GENTAMICIN 0.1% 15 GM OINT TOP (09:20)
== END 2017-12-27 11:20 | disposition home health service (06) | DRG 560 ==
LOC: VRC 16:37
PROVIDERS: Physical Medicine & Rehabilitation
PROC: F07Z5ZZ Bed Mobility Treatment (ICD-10-PCS; principal; 2017-11-29)
PROC: F07Z8ZZ Transfer Training Treatment (ICD-10-PCS; 2017-11-29)
PROC: F07Z9ZZ Gait Training/Functional Ambulation Treatment (ICD-10-PCS; 2017-11-29)
PROC: F08Z2ZZ Grooming/Personal Hygiene Treatment (ICD-10-PCS; 2017-11-29)
PROC: F08Z1ZZ Dressing Techniques Treatment (ICD-10-PCS; 2017-11-29)
PROC: F08Z0ZZ Bathing/Showering Techniques Treatment (ICD-10-PCS; 2017-11-29)
DX: Z47.81 Encounter for orthopedic aftercare following surgical amputation (principal); T81.4XXA Infection following a procedure, initial encounter; E11.40 Type 2 diabetes mellitus with diabetic neuropathy, unspecified; T86.821 Skin graft (allograft) (autograft) failure; E11.65 Type 2 diabetes mellitus with hyperglycemia; F11.20 Opioid dependence, uncomplicated; G54.6 Phantom limb syndrome with pain; R26.9 Unspecified abnormalities of gait and mobility; I10 Essential (primary) hypertension; D64.9 Anemia, unspecified; Z74.09 Other reduced mobility; I73.9 Peripheral vascular disease, unspecified; Z89.432 Acquired absence of left foot; Z79.4 Long term (current) use of insulin; B96.5 Pseudomonas (aeruginosa) (mallei) (pseudomallei) as the cause of diseases classified elsewhere; B95.62 Methicillin resistant Staphylococcus aureus infection as the cause of diseases classified elsewhere; B95.2 Enterococcus as the cause of diseases classified elsewhere; Z16.21 Resistance to vancomycin
CPT/HCPCS: 80048; 80053; 81001; 82550; 82565; 82962; 84520; 85025; 87070; 87081; 87086; 97110; 97116; 97150; 97163; 97167; 97530; 97535; 97542

== ENCOUNTER 2018-01-15 16:39 | Day surgery (SDC) | payer BC ==
[2018-01-15] MEDS ORDERED: FENTAnyl 50 MCG/ML VIAL (20:30)
[2018-01-15] MEDS ORDERED: MIDAZOLAM 1 MG/ML 2 ML INJ (20:30)
[2018-01-15] MEDS: BUPIVACAINE 0.5% (SDV) 30 ML INJ (20:43)
[2018-01-15] MEDS: LIDOCAINE 2% (MDV) 20 ML INJ (20:43)
[2018-01-15] MEDS ORDERED: CEFAZOLIN 1 GM INJ (21:18)
[2018-01-15] MEDS ORDERED: PROPOFOL 20 ML (21:18)
[2018-01-15] MEDS ORDERED: LIDOCAINE 2% (SDV) 5 ML INJ (21:18)
[2018-01-15] MEDS ORDERED: ONDANSETRON 4 MG INJ (21:20)
[2018-01-15] MEDS: METOCLOPRAMIDE 10 MG INJ IV (21:49)
[2018-01-15] MEDS: HYDROmorphONE (0.2 MG/ML) 10ML SYG IV (21:49)
[2018-01-15] MEDS ORDERED: MEPERIDINE 25 MG INJ IV (22:00)
[2018-01-15] MEDS ORDERED: hydrALAzine 20 MG INJ IV (22:00)
[2018-01-15] MEDS ORDERED: LABETALOL HCL 20MG INJ IV (22:00)
[2018-01-15] MEDS ORDERED: FENTAnyl 50 MCG/ML VIAL IV (22:00)
[2018-01-15] MEDS ORDERED: HYDROmorphONE (0.2 MG/ML) 10ML SYG IV (22:00)
[2018-01-15] MEDS ORDERED: ONDANSETRON 4 MG INJ IV (22:00)
[2018-01-15] MEDS ORDERED: DIPHENHYDRAMINE 50 MG INJ IV (22:00)
[2018-01-15] MEDS: OXYCODONE/ACETAMINOPHEN (10/325) TAB PO (22:27)
== END 2018-01-15 22:59 | disposition home or self-care (01) ==
LOC: SDS 16:39
DX: T87.89 Other complications of amputation stump (principal); Y83.8 Other surgical procedures as the cause of abnormal reaction of the patient, or of later complication, without mention of misadventure at the time of the procedure; Z89.432 Acquired absence of left foot; E11.9 Type 2 diabetes mellitus without complications; I10 Essential (primary) hypertension; E78.5 Hyperlipidemia, unspecified
CPT/HCPCS: 28805; 82962